=== PATIENT | female | born 1995 | race Caucasian/White ===

== ENCOUNTER 2017-11-19 22:46 | Emergency (ER) | payer SELFPAY ==
[2017-11-19 22:46] VITALS: BP 120/78; PULSE 89; RESP 16; TEMP 36.6; O2SAT 98; BMI 19.7
--- NOTE | 2017-11-19 22:55 | CT_ITS ---
STUDY: CT BRAIN WITHOUT CONTRAST REASON FOR EXAM: Female, 22 years old. Headache RADIATION DOSAGE (If Supplied By Facility): CTDIvol = ( 44.99 ) mGy, DLP = ( 745.49 ) mGycm TECHNIQUE: Transaxial CT imaging of the brain was performed without administration of intravenous contrast material. Individualized dose optimization techniques were used for this CT. COMPARISON: None. FINDINGS: There is no acute bleed or infarct. There are normal white matter tracts. The ventricles are normal in configuration. There is no hydrocephalus. The visualized paranasal sinuses are clear. The mastoid air cells are well aerated. There is no skull fracture. CT/Brain/Head without Contrast IMPRESSION: No acute intracranial abnormality. Electronically Signed: Jean Pierre Michaels, at 23:32 EDT Tel , Service support ,
[2017-11-19] MEDS: Metoclopramide 10 MG/2 ML Vial IV (23:02)
[2017-11-19] MEDS: DiphenhydrAMINE 50 MG/ML Syringe 25 MG IV (23:02)
[2017-11-19] MEDS: 0.9% Normal Saline 1,000 ML 999 ML IV (23:02)
--- NOTE | 2017-11-19 23:06 | ED.VISSUMM ---
- ER Visit Summary Date of Service: 11/19/17 Chief Complaint: Headache History of Present Illness: The patient is a 22 F nontraumatic frontal headache for the past 3 days. Waxes and wanes. Positive aura, nausea vomiting ?3 total. No hematemesis. Zvgf-sko-parumdi medication no relief. Denies previous similar symptoms. No head injuries. No neck pain. No fevers. Positive stress at home. Physical Examination: General: Alert and oriented ?3, no acute distress HEENT: Normocephalic, atraumatic. Moist mucosa membranes Neck: supple, nontender. No meningismus Cardiovascular: Regular rate and rhythm, no murmurs Respiratory: Normal breath sounds, symmetric, no distress Abdomen: Soft, nontender, nondistended Extremities: Nontender, no edema, pulses intact ?4 Neuro: no focal neurological deficits. Cranial nerves II through XII intact Test Results: CT head: No acute process Emergency Department Course and Treatment: Patient no focal neurological deficits. Migraine symptoms. No history of similar, CT head obtained for baseline which was negative. Treated with Reglan and Benadryl and IV fluids. Reevaluation symptoms improved. She has no PCP therefore is given on-call physician for follow-up. Treatment Plan: [] Disposition: Discharge Impression: Migraine headache This note was generated with [employer] dictation software. It may contain incorrect words, spelling, and punctuation that were not noted in review of the chart prior to signing ED Disposition - Plan for ED Patient: Disposition: Home or Assisted Living Chief Complaint: Headache Diagnosis: Migraine headache with aura Instructions: ED Headache Migraine Referrals: Care Physician,No Primary [Primary Care Provider] - Anabelle Sheehan MD [STAFF PHYSICIAN] - 5-7 Days
[2017-11-20 00:06] VITALS: BP 112/65; PULSE 105; RESP 18; O2SAT 100
== END 2017-11-20 00:08 | disposition home or self-care (01) ==
PROVIDERS: Emergency Provider Emergency Medicine
DX: G43.909 Migraine, unspecified, not intractable, without status migrainosus (principal); Z72.0 Tobacco use
CPT/HCPCS: 70450; 99283; J7030; A4216

== ENCOUNTER 2018-08-30 15:43 | Emergency (ER) | payer MEDICAID, SELFPAY ==
[2018-08-30 15:44] VITALS: BP 128/76; PULSE 109; RESP 16; TEMP 36.6; O2SAT 99; BMI 26.6
--- NOTE | 2018-08-30 16:18 | RAD_ITS ---
STUDY: X-RAY - RIGHT FOOT CLINICAL: Female, 23 years old. Right foot pain TECHNIQUE: 3 view(s) of the foot. COMPARISON: None. FINDINGS: Normal talus, calcaneus, and tarsal bones. Normal visualized subtalar, talonavicular, calcaneocuboid, tarsal and tarsometatarsal articulations. Normal metatarsi. Normal metatarsophalangeal joint of the great toe. Normal tibial and fibular sesamoid bones. Normal interphalangeal joint of the great toe. Normal phalanges of the great toe. Normal second through fifth metatarsophalangeal joints. Normal interphalangeal joints and phalanges of the lesser toes. The soft tissue structures are unremarkable. RAD/Foot min 3 Views IMPRESSION: Normal x-ray examination of the foot. Electronically Signed: Brandon Montgomery MD at 16:37 EDT , Service support ,
--- NOTE | 2018-08-30 16:36 | ED.VISSUMM ---
- ER Visit Summary Date of Service: 08/30/18 Chief Complaint: Right foot pain History of Present Illness: The patient is a 23 F who states for the past 2 weeks has had pain on the dorsum of her right foot. She states she has had intermittent swelling. She is been wearing high top tennis shoes. She denies any known trauma. No erythema. No known penetrating trauma. No history of gout. She states is painful when she bends her toes backwards particularly near the MTP joints of the second and third digits. No ankle pain. She occasionally has pain over the arch of her foot. Nothing was different today to make her come to the emergency department other than it has been 2 weeks of pain. Physical Examination: Afebrile vital signs stable Gen: Well-nourished well-developed Head: Normocephalic atraumatic Eyes: Perrl EOMI ENT: TMs clear no rhinorrhea moist mucous membranes Neck: Supple no lymphadenopathy no JVD nontender CVS: Regular rate rhythm no murmurs normal S1-S2 Respiratory: No distress clear to auscultation bilaterally chest nontender Abdomen: Soft nontender nondistended normal bowel sounds no masses Back: Nontender Extremity: Mild tenderness over the dorsum of the right foot. No erythema. No edema Skin: Normal color no rash Neuro: alert orientated ?3 CN II-XII intact normal strength sensation reflexes gait cerebellar Psych: Normal affect normal mood Test Results: Foot x-rays showed no bony abnormalities Emergency Department Course and Treatment: I think this probably a tendinitis. I will place her in an Jose wrap have her follow-up with podiatry. Scheduled anti-inflammatories. Impression: 1. Right foot tendinitis This note was generated with [employer] dictation software. It may contain incorrect words, spelling, and punctuation that were not noted in review of the chart prior to signing ED Disposition - Plan for ED Patient: Disposition: Home or Assisted Living Instructions: What Is Tendinitis of the Foot? Prescriptions: Ibuprofen [Motrin] 600 mg PO Q8H PRN PRN #21 tab PRN Reason: Pain Referrals: Brown Salmeron DPM [STAFF PHYSICIAN] -
== END 2018-08-30 16:50 | disposition home or self-care (01) ==
LOC: ED 16:45
PROVIDERS: Emergency Provider Emergency Medicine
DX: M65.871 Other synovitis and tenosynovitis, right ankle and foot (principal)
CPT/HCPCS: 73630; 99282

== ENCOUNTER 2018-12-04 13:31 | Emergency (ER) | payer MEDICAID, SELFPAY ==
[2018-12-04 13:31] VITALS: BP 146/83; PULSE 113; RESP 16; TEMP 36.4; O2SAT 98; BMI 28.0
--- NOTE | 2018-12-04 14:26 | ED.DCSUM_ITS ---
- ER Visit Summary Date of Service: 12/04/18 Chief Complaint: Toothache History of Present Illness: The patient is a 23 F with dental pain for several days. The pain is in her right maxillary molar. No other associated symptoms. Physical Examination: Right maxillary third molar has been extracted. The gumline is erythematous and mildly swollen. No fluctuance. No trismus. No tongue elevation. No lymphadenopathy. No other pertinent findings. Airway intact. No stridor or drooling. Test Results: None indicated Emergency Department Course and Treatment: Patient will be treated with antibiotics and pain medicine. Follow-up with dental. Treatment Plan: Disposition: Discharged Impression: 1. Toothache This note was generated with [employer] dictation software. It may contain incorrect words, spelling, and punctuation that were not noted in review of the chart prior to signing ED Disposition - Plan for ED Patient: Referrals: Care Physician,No Primary [Primary Care Provider] -
--- NOTE | 2018-12-04 14:28 | ED.DEP ---
ED Disposition - Plan for ED Patient: Instructions: Dental Pain Prescriptions: Naproxen [Naprosyn] 500 mg PO BID PRN #20 tab Prescription Printed Penicillin V Potassium 500 mg PO 4X/DAY #40 tab Prescription Printed Additional Instructions: follow up with your dentist
[2018-12-04] MEDS: Penicillin Vk 250 MG Tablet 500 MG PO (14:38)
== END 2018-12-04 14:39 | disposition home or self-care (01) ==
LOC: ED 13:57
PROVIDERS: Emergency Provider Emergency Medicine
DX: K08.89 Other specified disorders of teeth and supporting structures (principal); Z72.0 Tobacco use
CPT/HCPCS: 99283

== ENCOUNTER → 2019-03-01 15:40 | Outpatient (CLI) | payer MEDICAID, SELFPAY ==
[2019-03-01 14:58] VITALS: BMI 28.0
[2019-03-01 16:18] LABS: Absolute Lymphocyte Count 3.24 X10^3/uL (0.83-4.51); Basophil# 0.02 X10^3/uL; Basophil% 0.2 % (0-1); Eosinophil# 0.29 X10^3/uL; Eosinophils% 2.3 % (0-5); Hematocrit 37.3 % (37-47); Hemoglobin 12.6 g/dL (12.0-15.0); Lymphocyte # 3.24 X10^3/ul (4.0); Lymphocyte % 25.9 % (19-41); Mean Corp Hgb Conc 33.8 g/dL (32-36); Mean Corpuscular Hgb 31.1 pg (27.0-32.0); Mean Corpuscular Volume 92.1 fL (81-99); Mean Platelet Vol. 11.2 fl (6.2-12.0); Monocyte# 0.99 X10^3/uL; Monocyte% 7.9 % (0-10); NRBC Flagged by Analyzer 0 % (0-5); Neutrophil # 7.95 X10^3/uL (2.7-7.7); Neutrophil % 63.4 % (47-70); Platelet Count 298 K/mm3 (150-450); RBC Distribution Width CV 13.1 % (11.6-14.6); RBC Distribution Width SD 44.4 fl (35.1-43.9); Red Blood Count 4.05 M/mm3 (4.2-5.4); White Blood Count 12.5 K/mm3 (4.4-11.0)
[2019-03-01 16:44] LABS: ALB/GLOB Ratio 0.8 RATIO (0.9-2.4); AST(SGOT) 18 U/L (15-37); Alanine Aminotransfer ALT/SGPT 20 U/L (13-56); Albumin, Serum 3.6 g/dL (3.2-5.0); Alkaline Phosphatase 75 U/L (45-117); Anion Gap 9 (5-15); BUN 10 mg/dL (7-18); BUN/Creat Ratio 16.2 RATIO (10-20); Calcium,Total 9.3 mg/dL (8.5-10.1); Chloride 103 mmol/L (98-107); Creatinine, Serum 0.62 mg/dL (0.55-1.02); EST Glomerular Filtration Rate 126 mL/min (>60); Est Glom Filt Rate - Afr Amer 152 mL/min (>60); Globulin 4.3 g/dL (2.2-4.2); Glucose 84 mg/dL (74-106); Potassium 3.6 mmol/L (3.5-5.1); Protein, Total 7.9 g/dL (6.4-8.2); Sodium Level 135 mmol/L (136-145)
[2019-03-01 17:29] LABS: HIV - WCH Non-Reactive (Nonreactive); Rubella IgG 105.3 IU/mL
[2019-03-01 20:05] LABS: Chlamydia Trachomatis by PCR Negative (Negative); Neisserai gonorrhoeae by PCR Negative (Negative); Probe Check PASS; Sample Adequacy Control PASS; Specimen Processing Control PASS
[2019-03-01 20:06] LABS: Chlamydia Trachomatis by PCR Negative (Negative); Neisserai gonorrhoeae by PCR Negative (Negative); Probe Check PASS; Sample Adequacy Control PASS; Specimen Processing Control PASS
[2019-03-03 20:07] LABS: HCV Quant. RNA PCR HCV Not Detected IU/mL (.)
[2019-03-04 12:38] LABS: HPV Reflexed? NOT INDICATED
[2019-03-04 12:38] LABS: V-Zoster IgG (Immunity) 348 index (Immune >165)
[2019-03-05 01:54] LABS: Rapid Plasmin Reagin (RPR) NONREACTIVE (NONREACTIVE)
== END ==
PROVIDERS: Nurse Practitioner Women's Health; Referring Provider Obstetrics & Gynecology; Visit Provider Obstetrics & Gynecology
DX: O09.90 Supervision of high risk pregnancy, unspecified, unspecified trimester (principal); Z12.4 Encounter for screening for malignant neoplasm of cervix; Z86.19 Personal history of other infectious and parasitic diseases
CPT/HCPCS: 36415; 80053; 85025; 86592; 86703; 86762; 86787; 86850; 86900; 86901; 87086; 87088; 87491; 87522; 87591; 88175; G0145

== ENCOUNTER → 2019-03-29 13:57 | Outpatient (CLI) | payer MEDICAID, SELFPAY ==
[2019-03-29 13:47] VITALS: BMI 28.0
[2019-03-29 15:02] LABS: Amphetamine Urine VISTA NEGATIVE (<1000 ng/mL); Barbiturate Urine VISTA NEGATIVE (< 200 ng/mL); Benzodiazepine Urine VISTA NEGATIVE (< 200 ng/mL); Cocaine Urine VISTA NEGATIVE (< 300 ng/mL); Ecstacy Urine VISTA NEGATIVE (< 500 ng/mL); Methadone Urine VISTA NEGATIVE (< 300 ng/mL); PCP Urine VISTA NEGATIVE (< 25 ng/mL); THC Urine VISTA NEGATIVE (< 50 ng/mL); Vista UDS pH Range 6
[2019-03-29 15:32] LABS: Hepatitis B Surface Antigen Non-Reactive (Nonreactive)
== END ==
PROVIDERS: Referring Provider Obstetrics & Gynecology; Visit Provider Obstetrics & Gynecology
DX: F19.11 Other psychoactive substance abuse, in remission (principal)
CPT/HCPCS: 36415; 80307; 87340

== ENCOUNTER → 2019-06-25 09:43 | Outpatient (CLI) | payer MEDICAID, SELFPAY ==
[2019-06-25 09:01] VITALS: BMI 28.0
[2019-06-25 10:16] LABS: Glucose Challenge Gest 1H 50g 109 mg/dL (70-140)
[2019-06-25 10:29] LABS: Absolute Lymphocyte Count 2.81 X10^3/uL (0.83-4.51); Absolute Neutrophil Count 10.6 X10^3/uL (2.0-7.7); Basophil# 0.02 X10^3/uL; Basophil% 0.1 % (0-1); Eosinophil# 0.31 X10^3/uL; Eosinophils% 2.1 % (0-5); Hematocrit 32.2 % (37-47); Hemoglobin 10.9 g/dL (12.0-15.0); Lymphocyte # 2.81 X10^3/ul (4.0); Lymphocyte % 18.9 % (19-41); Mean Corp Hgb Conc 33.9 g/dL (32-36); Mean Corpuscular Hgb 32.5 pg (27.0-32.0); Mean Corpuscular Volume 96.1 fL (81-99); Mean Platelet Vol. 10.8 fl (6.2-12.0); Monocyte# 1.07 X10^3/uL; Monocyte% 7.2 % (0-10); NRBC Flagged by Analyzer 0 % (0-5); Neutrophil # 10.57 X10^3/uL (2.7-7.7); Neutrophil % 71.1 % (47-70); Platelet Count 289 K/mm3 (150-450); RBC Distribution Width CV 13.3 % (11.6-14.6); RBC Distribution Width SD 46.9 fl (35.1-43.9); Red Blood Count 3.35 M/mm3 (4.2-5.4); White Blood Count 14.9 K/mm3 (4.4-11.0)
== END ==
PROVIDERS: Referring Provider Obstetrics & Gynecology; Visit Provider Obstetrics & Gynecology
DX: O09.90 Supervision of high risk pregnancy, unspecified, unspecified trimester (principal); Z3A.26 26 weeks gestation of pregnancy
CPT/HCPCS: 36415; 82950; 85025

== ENCOUNTER → 2019-09-03 09:37 | Outpatient (CLI) | payer MEDICAID, SELFPAY ==
[2019-09-03 09:25] VITALS: BMI 28.0
[2019-09-03 09:51] LABS: Absolute Lymphocyte Count 2.83 X10^3/uL (0.83-4.51); Absolute Neutrophil Count 11.3 X10^3/uL (2.0-7.7); Basophil# 0.03 X10^3/uL; Basophil% 0.2 % (0-1); Eosinophil# 0.41 X10^3/uL; Eosinophils% 2.6 % (0-5); Hematocrit 35.4 % (37-47); Hemoglobin 11.7 g/dL (12.0-15.0); Lymphocyte # 2.83 X10^3/ul (4.0); Lymphocyte % 17.9 % (19-41); Mean Corp Hgb Conc 33.1 g/dL (32-36); Mean Corpuscular Hgb 31.3 pg (27.0-32.0); Mean Corpuscular Volume 94.7 fL (81-99); Mean Platelet Vol. 10.6 fl (6.2-12.0); Monocyte# 1.25 X10^3/uL; Monocyte% 7.9 % (0-10); NRBC Flagged by Analyzer 0 % (0-5); Neutrophil # 11.25 X10^3/uL (2.7-7.7); Neutrophil % 70.9 % (47-70); Platelet Count 308 K/mm3 (150-450); RBC Distribution Width CV 13.2 % (11.6-14.6); RBC Distribution Width SD 46.1 fl (35.1-43.9); Red Blood Count 3.74 M/mm3 (4.2-5.4); White Blood Count 15.9 K/mm3 (4.4-11.0)
[2019-09-03 10:09] LABS: ALB/GLOB Ratio 0.7 RATIO (0.9-2.4); AST(SGOT) 17 U/L (15-37); Alanine Aminotransfer ALT/SGPT 18 U/L (13-56); Albumin, Serum 2.7 g/dL (3.2-5.0); Alkaline Phosphatase 136 U/L (45-117); Anion Gap 9 (5-15); BUN 5 mg/dL (7-18); BUN/Creat Ratio 7.9 RATIO (10-20); Calcium,Total 8.6 mg/dL (8.5-10.1); Chloride 107 mmol/L (98-107); Creatinine, Serum 0.63 mg/dL (0.55-1.02); EST Glomerular Filtration Rate 121 mL/min (>60); Est Glom Filt Rate - Afr Amer 147 mL/min (>60); Globulin 4.1 g/dL (2.2-4.2); Glucose 101 mg/dL (74-106); Potassium 3.8 mmol/L (3.5-5.1); Protein, Total 6.8 g/dL (6.4-8.2); Sodium Level 137 mmol/L (136-145)
[2019-09-03 13:26] LABS: Amphetamine Urine VISTA NEGATIVE (<1000 ng/mL); Barbiturate Urine VISTA NEGATIVE (< 200 ng/mL); Benzodiazepine Urine VISTA NEGATIVE (< 200 ng/mL); Cocaine Urine VISTA NEGATIVE (< 300 ng/mL); Ecstacy Urine VISTA NEGATIVE (< 500 ng/mL); Methadone Urine VISTA NEGATIVE (< 300 ng/mL); PCP Urine VISTA NEGATIVE (< 25 ng/mL); THC Urine VISTA NEGATIVE (< 50 ng/mL); Vista UDS pH Range 6
[2019-09-04 20:07] LABS: HCV Quant. RNA PCR HCV Not Detected IU/mL (.)
== END ==
PROVIDERS: Nurse Practitioner Women's Health; Referring Provider Obstetrics & Gynecology; Visit Provider Obstetrics & Gynecology
DX: O09.90 Supervision of high risk pregnancy, unspecified, unspecified trimester (principal); Z86.19 Personal history of other infectious and parasitic diseases; Z3A.00 Weeks of gestation of pregnancy not specified
CPT/HCPCS: 36415; 80053; 80307; 85025; 87081; 87522

== ENCOUNTER 2019-09-26 15:15 | Inpatient (IN) | payer MEDICAID, SELFPAY ==
[2019-09-24 13:15] VITALS: BMI 28.0
[2019-09-26] VITALS (58 sets, daily range): BP systolic 106–146; BP diastolic 57–86; PULSE 86–111; TEMP 36.2–37.3; O2SAT 82–99; BMI 34.7
[2019-09-26 16:18] LABS: ROM Internal Control Test YES-OK TO RESULT pt. (Internal QC); ROM Patient Test Negative (Negative)
[2019-09-26] MEDS: 0.9% Saline Lock 10 ML Syringe IV ×2 (16:27→23:00)
[2019-09-26] MEDS: Lactated Ringers 1,000 ML 50 ML IV (16:59)
[2019-09-26] MEDS: Lactated Ringers 500 ML 999 ML IV ×3 (16:59→18:34)
--- NOTE | 2019-09-26 17:14 | HP.PCM_ITS ---
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 Cinthia Bridges MD) Smoking Status: Current every day smoker alcohol intake: never substance use type: does not use caffeine: Yes what type of physical activity do you participate in: walking frequency: 3-4 times per week seatbelt use: always do you feel safe at home: Yes additional social history: Boyfriend-Rigo Pregancy History 2 Elective abortions Hx Para 1 Spontaneous abortions Hx # Term Pregnancies Ectopic pregnancies Hx # Pregnancies Multiple births # of living children Past Pregnancies Del. Date Name GA/Weeks Outcome Route Bth Weight Gen Labor Lgth Anesthesia Del Locatn Provider FOB 09/10/11 Vincent 39 live - full term 7lbs 1oz Male 1 3 hours epidural [facility] Dr. Cyrus Santana Delivery Date: 09/10/11 On 03/01/19 @ 14:38 Genesis Covarrubias No issues during or delivery. HPI est ob 40w: Details: RONIT MARTINEZ is a 24 year old @ 39w6d presents IAL 5 cm dilated co regular ctx. she denies any vb had questionable lof but didn't appear ruptured. She was 5 cm upon admission. OB Visit ERWIN Calculator Estimated Delivery Date Method Current WG Current Estimate 09/27/19 Ultrasound #1 39w 4d Other Estimates 09/20/19 LMP (Certain) 40w 4d Expected Delivery Route/Plan Labor Preferences- labor support person: abrahan ceferino- amy pain management options preferred: epidural cut cord/dad catch: no : no PP control planned: depo provera discussed possible routes of delivery and associated risks: [] special requests: [] Specific Issue/Plans flu vaccine: given tdap vaccine: given rhogam: na LARC form signed: declined movement and labor precautions reviewed. Problem list reviewed and updated with the most current plan of care details and appropriate orders placed. Relevant counseling for the gestational age provided. Continue routine care and follow up unless otherwise noted in visit notes/problem list details Initial Weight: Not Recorded Date EGA Weight BP Urine Prot Glucose FHR FuHt Pres Dilation Effaced St Visit Note 03/01/19 10w 0d 167 lb 6 oz 108/58 171 03/29/19 14w 0d 170 lb 2 oz 130/70 Negative Negative 160 145 no vb cramping increased energy now 04/30/19 18w 4d 173 lb 118/74 Negative Negative 140 no vb lof cramping 05/28/19 22w 4d 180 lb 8 oz 135/84 Negative Negative 147 Good FM. No Vb, LOF 06/25/19 26w 4d 185 lb 122/78 Negative Negative 145 SM- no vb lof good fm no reg ctx cbc gct tdap 07/23/19 30w 4d 195 lb 116/70 Negative Negative 145 31 SM- no vb lof good fm no regular ctx 08/06/19 32w 4d 196 lb 8 oz 118/62 Negative Negative 140 33 SM- no vb lof good fm no regular ctx 08/20/19 34w 4d 195 lb 98/60 Negative Negative 245 35 Cephalic SM- no vb lof fm no regular ctx 09/03/19 36w 4d 199 lb 6 oz 120/82 Negative Negative 138 36 Cephalic 1 MH-No Vb, LOF. Good FM. Hep C RNA, CMP, CBC, tox screen, GBS. 09/09/19 37w 3d 200 lb 112/60 Negative Negative 146 37 Cephalic 1 MH-Good FM. No VB, LOF. GBS negative 09/17/19 38w 4d 204 lb 108/72 Negative Negative 145 38 Cephalic 3 sm- NO VB LOF GOOD FM NO REGULAR CTX 09/24/19 39w 4d 206 lb 136/82 Negative Negative 140 39 Cephalic SM- no vb lof good fm no regular ctx SM- no vb lof good fm no regular ctx. membranes swept Notes Visit Date: 09/24/19 ??No visit notes to display Visit Date: 09/17/19 ??No visit notes to display Visit Date: 09/09/19 ??No visit notes to display Visit Date: 09/03/19 ??No visit notes to display Visit Date: 08/20/19 ??No visit notes to display Visit Date: 08/06/19 ??No visit notes to display Visit Date: 07/23/19 ??No visit notes to display Visit Date: 06/25/19 ??No visit notes to display Visit Date: 05/28/19 ??No visit notes to display Visit Date: 04/30/19 ??no vb lof cramping ??Cinthia Bridges MD on 04/30/19 Visit Date: 03/29/19 ??no vb cramping increased energy now ??Cinthia Bridges MD on 03/29/19 Visit Date: 03/01/19 ??No visit notes to display ACOG First Trimester First Trimester: Desire for , Anticipated Course of Care, Toxoplasmosis Precations, Use of Any medications, Sexual activity, Exercise, Sauna/Hot tub use, Seat Belt use, Indications for US and Screening for Aneuploidy; discussed Alcohol, discussed Tobacco Cessation, discussed Illicit/Re creational Drug/Substance Use, discussed Intimate Partner Violence, discussed Unstable Housing, discussed Environmental/Work Hazards or discussed Diagnostics Diagnostics Diagnostics Blood Type A POSITIVE 03/01/19 Antibody Screen NEGATIVE 03/01/19 Glucose 1 Hr 50 gm 109 mg/dL (70-140) 06/25/19 HIV 1&2 Antibody Non-Reactive (Nonreactive) 03/01/19 Rubella IgG Antibody 105.3 IU/mL 03/01/19 VZV IgG Antibody 348 index (Immune >165) 03/01/19 Hgb 11.7 g/dL (12.0-15.0) L 09/03/19 Hct 35.4 % (37-47) L 09/03/19 RPR NONREACTIVE (NONREACTIVE) 03/01/19 Details: HIV: Urine Culture: Sequential Screen: NIPT Screen: ROS Const Denies fever(s) Card Reports system reviewed and no additional complaints, except as docu Resp Reports system reviewed and no additional complaints, except as docu GI Reports as per HPI, Denies abdominal pain Reports as per HPI, Denies abnormal vaginal bleeding, Denies vaginal discharge Musc Reports system reviewed and no additional complaints, except as docu Exam Const General: healthy appearing, comfortable, no acute distress [facility] Head: normal to inspection Nose: external nose normal Face and sinus: normal facial exam Neck Neck: normal visual inspection, full ROM, no lymphadenopathy Thyroid: thyroid normal Chest Chest palpation & inspection: normal inspection of the chest Resp Effort & Inspection: normal respiratory effort GI Inspection: normal to inspection Palpation: soft, nontender Other: vertex and appropriate size for gestational age Other: Cervical Exam: Extrem General: pedal edema Results POC Urinalysis 2 Dip (Clinic) Office Urine Glucose Negative Last Edit by Nadine Hawkins on 09/24/19 13:1 8 Office Urine Protein Negative Last Edit by Nadine Hawkins on 09/24/19 13:1 8 Assessment & Plan Problems 1. History of hepatitis C Z86.19 2. 39 weeks gestation of Z3A.39 3. Tobacco use affecting , antepartum O99.330 4. 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 Supervision of high risk , antepartum O09.90 admit IAL 5 cm had 3 min prolonged decel into the 70s. arom clear fluid and IUPC placed. 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
[2019-09-26] MEDS: fentaNYL-bupivacaine (epidural) 100 ML BAG EPIDURAL (18:28)
[2019-09-26 18:46] LABS: Absolute Neutrophil Count 14.7 X10^3/uL (2.0-7.7); Basophil# 0.03 X10^3/uL; Basophil% 0.2 % (0-1); Eosinophil# 0.18 X10^3/uL; Hemoglobin 11.8 g/dL (12.0-15.0); Lymphocyte % 10.4 % (19-41); Mean Corp Hgb Conc 32.8 g/dL (32-36); Mean Corpuscular Hgb 32.1 pg (27.0-32.0); Mean Corpuscular Volume 97.8 fL (81-99); Mean Platelet Vol. 11.3 fl (6.2-12.0); Monocyte# 1.36 X10^3/uL; Monocyte% 7.5 % (0-10); NRBC Flagged by Analyzer 0 % (0-5); Neutrophil # 14.67 X10^3/uL (2.7-7.7); Neutrophil % 80.5 % (47-70); Platelet Count 272 K/mm3 (150-450); RBC Distribution Width CV 13.9 % (11.6-14.6); RBC Distribution Width SD 49.4 fl (35.1-43.9); Red Blood Count 3.68 M/mm3 (4.2-5.4); White Blood Count 18.2 K/mm3 (4.4-11.0)
[2019-09-26 19:38] LABS: Amphetamine Urine VISTA NEGATIVE (<1000 ng/mL); Barbiturate Urine VISTA NEGATIVE (< 200 ng/mL); Benzodiazepine Urine VISTA NEGATIVE (< 200 ng/mL); Cocaine Urine VISTA NEGATIVE (< 300 ng/mL); Ecstacy Urine VISTA NEGATIVE (< 500 ng/mL); Methadone Urine VISTA NEGATIVE (< 300 ng/mL); PCP Urine VISTA NEGATIVE (< 25 ng/mL); THC Urine VISTA NEGATIVE (< 50 ng/mL); Vista UDS pH Range 6
[2019-09-26] MEDS: Oxytocin 30 units/NS 500 ml 30 UNITS/500 ML IV.SOLN 334 UNITS IV (20:08)
--- NOTE | 2019-09-26 20:17 | PCM.OPRPT ---
Problem List (1) Active labor Status: Acute Vaginal Delivery Maternal Presentation: Active Labor 24-year-old G2, P1 at 39 weeks 6 days presents in active labor 5 cm dilated Amniotic Membrane Rupture Type: Artificial Amniotic Fluid Description: Clear Final ERWIN: 09/27/19 Gestational age: 39 Weeks and 6 Days Date of Procedure: 09/26/19 Pre-Operative Diagnosis: In active labor prolonged heart rate deceleration Post-Operative Diagnosis: Same Surgery/ Procedure Performed: Vacuum Assisted Vaginal Delivery Type of Anesthesia: Epidural Description of Procedure: Patient went to complete and had a prolonged heart rate deceleration down into the 50s to 60s x5 to 6 minutes therefore patient was checked and she was noted to be complete and a vacuum was applied at +2 station with infant in ELIZABETH presentation. Kiwi vacuum was applied and with 1 pull no pop offs and 1 contraction with a total duration of less than 20 seconds the head was delivered using the vacuum. Suction removed and anterior and posterior shoulders delivered without complication immediately following and the rest of the infant delivered. Delayed cord clamping was employed and then the cord was clamped and cut. ABGs and VBG's were sent. Placenta delivered spontaneously immediately following was noted to be intact and have a three-vessel cord. EBL was 300 cc. No lacerations were noted. Presentation: ELIZABETH Placental Delivery Description: Spontaneous Placenta Disposition: [facility] Cord Vessel Description: 3 Vessels Cord Entanglement: None Estimated Blood Loss: 300 A gender: Male Episiotomy Description: None Laceration: None Medications given after delivery: IV Pitocin Complications: None Multi Select Codes - Urinary/Genital Urinary/Genital CPT Codes: 21706 Vaginal Delivery+ Care([facility]) - vacuum
[2019-09-27] VITALS (12 sets, daily range): BP systolic 107–119; BP diastolic 55–64; PULSE 75–93; RESP 16–18; TEMP 36.4–37.3; O2SAT 98
[2019-09-27] MEDS: Naproxen 250 MG Tablet 500 MG PO (03:05)
--- NOTE | 2019-09-27 07:42 | PN.OBGYN_ITS ---
Patient Problems: Active and Suspected Problems (Last Reviewed 09/24/19 @ 13:15 by Nadine Hawkins) Active labor (Acute) Subjective: doing well no complaints pain controlled no CP SOB N V ambulating well tolerating po lochia moderate, going well - Physical Exam Vitals/I&O's: Vital Signs Temp Pulse Resp BP Pulse Ox 97.6 F L 81 18 119/57 L 97 09/27/19 04:27 09/27/19 04:27 09/27/19 04:27 09/27/19 04:27 09/26/19 19:48 Weight: 201 lb 15.095 oz Body Mass Index (BMI) 34.7 Intake and Output for Last 24 Hours 09/25/19 09/26/19 09/27/19 23:59 23:59 23:59 Intake Total 2300.33 / 2300.33 Output Total 300 / 300 600 / 600 Balance 2000.33 / 2000.33 -600 / -600 General: Alert, Oriented x3 Laboratory Results 09/26/19 15:30: Vag Amniotic Fld Detect Negative 09/26/19 16:27: WBC Cancelled, Corrected WBC Cancelled, RBC Cancelled, Hgb Cancelled, Hct Cancelled, MCV Cancelled, MCH Cancelled, MCHC Cancelled, RDW Std Deviation Cancelled, RDW Coeff of Kelsie Cancelled, Plt Count Cancelled, MPV Cancelled, Diff Path Review Cancelled 09/26/19 16:27: Blood Type A POSITIVE, Antibody Screen NEGATIVE 09/26/19 16:27: WBC 18.2 H, RBC 3.68 L, Hgb 11.8 L, Hct 36.0 L, MCV 97.8, MCH 32.1 H, MCHC 32.8, RDW Std Deviation 49.4 H, RDW Coeff of Kelsie 13.9, Plt Count 272, MPV 11.3, Immature Gran % (Auto) 0.400, Neut % (Auto) 80.5 H, Lymph % (Auto) 10.4 L, Griggs % (Auto) 7.5, Eos % (Auto) 1.0, Baso % (Auto) 0.2, Absolute Neuts (auto) 14.7 H, Absolute Lymphs (auto) 1.90, Nucleated RBC % 0 09/26/19 18:58: Urine Opiates Screen NEGATIVE, Urine Methadone Screen NEGATIVE, Ur Barbiturates Screen NEGATIVE, Ur Phencyclidine Scrn NEGATIVE, Ur Amphetamines Screen NEGATIVE, U Methamphetamin-MDMA NEGATIVE, U Benzodiazepines Scrn NEGATIVE, Urine Cocaine Screen NEGATIVE, U Cannabinoids Screen NEGATIVE, Ur Drug Screen Comment Current Medications Acetaminophen (Tylenol) 1,000 mg PO Q8H PRN PRN PRN Reason: Pain Score 1-3/10 Bisacodyl (Dulcolax) 10 mg RECTAL UD PRN PRN Reason: If no BM Dibucaine (Dibucaine) 1 applic TOPICAL TID PRN PRN; Protocol PRN Reason: Discomfort Hydrocortisone (Hytone) 1 applic TOPICAL TID PRN PRN; Protocol PRN Reason: Discomfort Methylergonovine Maleate (Methergine) 0.2 mg IM X1 PRN PRN Reason: Excess bleeding/uterine atony Naproxen (Naprosyn) 500 mg PO Q8H PRN PRN PRN Reason: Pain Score 1-3/10 Last Admin: 09/27/19 03:05 Dose: 500 mg Documented by: Ondansetron HCl (Zofran) 4 mg IV Q4H PRN PRN PRN Reason: Nausea Oxycodone HCl (Oxyir) 5 - 10 mg PO Q4H PRN PRN PRN Reason: Pain Score 4-10/10 Multivit/Folic Acid/Iron (Prenatabs Fa) 1 tablet PO DAILY SOTO Senna/Docusate Sodium (Senokot-S, Ciera-Colace) 1 - 2 tablet PO DAILY PRN PRN PRN Reason: Constipation Simethicone (Mylicon) 80 mg PO PCHS PRN PRN Reason: Indigestion/Stomach pain Sodium Chloride () 5 - 15 ml IV UD PRN PRN Reason: SALINE FLUSH Last Admin: 09/26/19 23:00 Dose: 10 ml Documented by: Medical Necessity - Tobacco Use Smoking Status: Current every day smoker Assessment/Plan All Active Problems (Last Reviewed 09/24/19 @ 13:15 by Nadine Hawkins) Active labor (Acute) History of hepatitis C (Acute) (Acute) Tobacco use affecting , antepartum (Acute) History of drug abuse in remission (Acute) Supervision of high risk , antepartum (Acute) s/p PPD # 1 1. routine post delivery care 2. breast feeding- support given 3. rh positive 4. rubella immune
[2019-09-27] MEDS: Prenatal Vits Tablet 1 TABLET PO (10:12)
--- NOTE | 2019-09-27 10:56 | DCINST_ITS ---
Discharge Diet: No Restrictions Discharge Activity: Return to Normal Activity, May not drive while taking narcotic pain medications., May Shower May resume sexual activity in: 4-6 weeks Call your doctor if your incision/area has: Continuous Slow Oozing, Sudden Increased Bleeding, Increased Pain/ Swelling, Increased Redness, Foul Smelling Discharge Additional Instructions: If you experience any of the following, contact your healthcare provider. * Bleeding that soaks a pad every hour for 2 hours * Fever 100.4 or higher * Unrelieved incision or abdominal pain * Swelling, redness, discharge or bleeding from your incision or episiotomy site * Your incision begins to separate * Problems urinating (including inability to urinate or burning while urinating). * Visual changes * Severe headache * Flu-like symptoms * Pain or redness in one of both of your breasts * Pain, warmth, tenderness or swelling in your legs, especially the calf area * Frequent nausea and vomiting * Symptoms of depression or anxiety If you experience any of the following, call 911 or go to the nearest Emergency Room. * Chest pain * Problems breathing * Seizure activity * Partial or complete paralysis of a body part, slurred speech, weakness or drooping of the face, or a sudden inability to walk or hold your balance Allergies/Adverse Reactions: Allergies No Known Allergies Allergy (Verified 09/26/19 15:58) Medications to take at Discharge Vit No.130/Iron/Folic [ Tablet] 1 tab PO DAILY 09/26/19 Please Follow Up With: Cinthia Bridges MD - [phone] When: Call to make an appointment with your doctor in 6 weeks. If you had elevated Blood pressure or 4th degree laceration you will need to be seen in 2 weeks. Primary Care Physician: Care Physician,No Primary [Primary Care Provider] - Test Results: Test results from this visit will be discussed in further detail at your follow- up appointment, if applicable.
--- NOTE | 2019-09-27 10:56 | PCM.DCVAG ---
Discharge Diet: No Restrictions Discharge Activity: Return to Normal Activity, May not drive while taking narcotic pain medications., May Shower May resume sexual activity in: 4-6 weeks Call your doctor if your incision/area has: Continuous Slow Oozing, Sudden Increased Bleeding, Increased Pain/ Swelling, Increased Redness, Foul Smelling Discharge Additional Instructions: If you experience any of the following, contact your healthcare provider. Bleeding that soaks a pad every hour for 2 hours Fever 100.4 or higher Unrelieved incision or abdominal pain Swelling, redness, discharge or bleeding from your incision or episiotomy site Your incision begins to separate Problems urinating (including inability to urinate or burning while urinating). Visual changes Severe headache Flu-like symptoms Pain or redness in one of both of your breasts Pain, warmth, tenderness or swelling in your legs, especially the calf area Frequent nausea and vomiting Symptoms of depression or anxiety If you experience any of the following, call 911 or go to the nearest Emergency Room. Chest pain Problems breathing Seizure activity Partial or complete paralysis of a body part, slurred speech, weakness or drooping of the face, or a sudden inability to walk or hold your balance Allergies/Adverse Reactions: Allergies No Known Allergies Allergy (Verified 09/26/19 15:58) Medications to take at Discharge Vit No.130/Iron/Folic [ Tablet] 1 tab PO DAILY 09/26/19 Please Follow Up With: Cinthia Bridges MD - [phone] When: Call to make an appointment with your doctor in 6 weeks. If you had elevated Blood pressure or 4th degree laceration you will need to be seen in 2 weeks. Primary Care Physician: Care Physician,No Primary [Primary Care Provider] - Test Results: Test results from this visit will be discussed in further detail at your follow-up appointment, if applicable.
--- NOTE | 2019-09-27 14:13 | CASEMGMT ---
Social Work Assessment Labor and Delivery Unit Patient Address:[address] [place] [id number] Phone number: [phone] Date of Referral: 09.27.2019 Time of Referral: 829 Referred By: nursing notification Date of Intervention: 09.27.2019 Time of Intervention: 1329 Reason for Referral: maternal history of substance use; negative tox screens in . History obtained from: medical records and mother of baby (MOB) Hilda Horne. *MOB is known to this rewriter from prior deliveries at [facility]* Household composition: MOB reports to live with father of baby (FOB) Fermín Cruz. MOB denies any safety concerns or history of abuse/control/intimidation in this relationship or home environment. Patient's parent/guardian status: MOB and FOB have been together for a year, and is the first child for MOB and FOB together. Minor children for MOB include: Vincent Rodriguez, born 09.10.2011, father is Jean Pierre Rodriguez who about 2 years ago related to infection stemming for substance use issues. Nilo Cruz, born 09.26.2019, father is the identified FOB above. OKSANA had 2 daughters: Jana, same age as Vincent, lives out of state and FOB does not see her. Bette, around the age of 3 or 4, in a car accident. Medical History: MOB is G2, P1 to 2 after delivering Nilo. care started at 10 weeks and regular thereafter. Baby Nilo delivered weighing 8 pounds, Apgars 9 and 9 at 1 and 5 minutes of life. Chart indicates BRITT with history of Hepatitis C. Educational Status: MOB completed through the 10th grade, got into [id number] grade and was doing online schooling when Vincent was born. MOB reports she just never finished. MOB reports to be able to read, write, and to understand what reads. 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 FOB works making deliveries for [employer] and then at [employer]. Supplies: MOB reports to have needed supplies including a car seat, safe sleep space, bottles, formula, clothing, diapers, and wipes. Childcare/Caregiver(s): MOB and FOB. Transportation: No issues. Programs/Agencies Involved: MOB is active with S for food and medical. Active with WIC. Declines referrals to [facility], but had history of this for Vincent. Also declines referral to [facility]. No current mental health or substance use history. Children Services/Legal Issues: BRITT reports history of drug related charges, served some fdc time for this and is still on probation but due to get off of probation soon. MOB reports to be in no day to get off of probation. MOB denies any history of children service involvement with Vincent. Behavioral Health Issues: Mental Health History: MOB denies history of depression, anxiety, suicidal ideation/intent/planning/attempts. Denies any history of depression and anxiety. Admits sometimes feel a little anxious but not to the point of causing distress. Substance Use History: Positive tobacco smoking. History of marijuana use as a teen. MOB reports after delivery of Vincent was given a prescription of Percocet. MOB repots after this prescription, and along with influence of Vincent's father became hooked on drugs, first heroin and then meth. BRITT reports has been clean for a year and a half. MOB reports went through 3 months of residential at [facility] and did aftercare. Family History: BRITT reports her brother went to [facility] for issues with messing with minors. BRITT reports OKSANA has PTSD related dot his daughter dying, and that the symptoms are under control. Drug Screens: Maternal drug screens negative on 04.08.2019, 09.03.2019, and at admission on 09.26.2019. Baby's urine is negative and meconium is pending. Family/Social Stressors: BRITT with history of substances use disorder, reporting to be in recovery since March 2018. BRITT reports Vincent's father prior to MOB getting into trouble and going into rehab. Also in the last 2 years BRITT's brother went to [facility]. No other identified or current stressors reported. Support Systems: BRITT reports her parents have been a primary support to BRITT through the years, helping to take care of Vincent when BRITT was away and continuing to be supportive when BRITT was discharged from residential. MOB reports her father is the main person MOB can talk of emotional support issues. MOB reports Fermín is also supportive. Depression/Shaken Baby/Safe Sleeping : Information given on safe sleeping and shaken baby prevention. Educated MOB to depression and anxiety, reviewed some risk factors and reinforced that it is okay for MOB to seek out help and support should symptoms arise. MOB reports to know that can talk to family and could even call OBGYN. MOB reports to have a friend who recently in the lat couple of months due to getting depressed, relapsing on drugs, and then dying. MOB reports to know that is real. ASSESSMENT: Met with MOB in room, introducing to self and role. MOB holding baby, gentle and attentive to baby during social work visit. MOB reports to have good feelings about the baby and described thoughts about the baby as amazing. MOB held good eye contact, was nondefensive, and appearing forthcoming with this rewriter as evidenced by MOB initiating topics of past substance use and stressors over the last couple of years. MOB reports to feel her recovery is going well, denies any cravings nor any using thoughts or dreams during this . MOB reports she would be willing to go back into counseling if depression hits. MOB reports too have adequate support at home going, to have all needed supplies to care for baby. MOB pleasant, did become teary eyed when talking about her support system and being grateful that her parents have stood by patient. MOB accepting of community resource information provided this date. Denies any other needs for home going. No concerns voiced by staff regarding mother/child bonding or interactions. Safe Plan of Care for infant related to substance use: Continued abstinence of substances. PLAN: MOB and baby to home at discharge. [facility] resource list provided, handouts on shaken baby prevention, safe sleeping, and depression packet that includes resources. No other services requested or indicated. -KEYA Melgoza, DATABASE ADMINISTRATION ASSOCIATE
== END 2019-09-27 21:20 | disposition home or self-care (01) | DRG 560 ==
PROVIDERS: Admitting Provider Obstetrics & Gynecology; Visit Provider Obstetrics & Gynecology
DX: O76 Abnormality in fetal heart rate and rhythm complicating labor and delivery (principal); O99.334 Smoking (tobacco) complicating childbirth; F17.200 Nicotine dependence, unspecified, uncomplicated; F19.11 Other psychoactive substance abuse, in remission; Z37.0 Single live birth; Z3A.39 39 weeks gestation of pregnancy; Z86.19 Personal history of other infectious and parasitic diseases
CPT/HCPCS: 59025; 59050; 80307; 84112; 85025; 86850; 86900; 86901; 99218; J7120; A4216; G0378

== ENCOUNTER → 2022-01-14 | Outpatient (CLI) | payer MEDICAID, SELFPAY ==
[2022-01-14 17:04] LABS: Absolute Lymphocyte Count 3.61 X10^3/uL (0.83-4.51); Absolute Neutrophil Count 5.2 X10^3/uL (2.0-7.7); Basophil# 0.02 X10^3/uL; Basophil% 0.2 % (0-1); Eosinophil# 0.23 X10^3/uL; Eosinophils% 2.3 % (0-5); Hematocrit 40.9 % (37-47); Hemoglobin 13.9 g/dL (12.0-15.0); Lymphocyte # 3.61 X10^3/ul (0.83-4.51); Lymphocyte % 36.5 % (19-41); Mean Corpuscular Hgb 32.4 pg (27.0-32.0); Mean Corpuscular Volume 95.3 fL (81-99); Mean Platelet Vol. 10.9 fl (6.2-12.0); Monocyte# 0.86 X10^3/uL; Monocyte% 8.7 % (0-10); NRBC Flagged by Analyzer 0 % (0-5); Neutrophil # 5.16 X10^3/uL (2.7-7.7); Neutrophil % 52.1 % (47-70); Platelet Count 289 K/mm3 (150-450); RBC Distribution Width CV 12.4 % (11.6-14.6); RBC Distribution Width SD 43.1 fl (35.1-43.9); Red Blood Count 4.29 M/mm3 (4.2-5.4); White Blood Count 9.9 K/mm3 (4.4-11.0)
[2022-01-14 17:33] LABS: ALB/GLOB Ratio 1.1 RATIO (0.9-2.4); AST(SGOT) 15 U/L (15-37); Alanine Aminotransfer ALT/SGPT 21 U/L (13-56); Albumin, Serum 4.1 g/dL (3.2-5.0); Alkaline Phosphatase 45 U/L (45-117); Anion Gap 4 (5-15); BUN 7 mg/dL (7-18); BUN/Creat Ratio 8.6 RATIO (10-20); Calcium,Total 9.3 mg/dL (8.5-10.1); Chloride 106 mmol/L (98-107); Creatinine, Serum 0.81 mg/dL (0.55-1.02); EST Glomerular Filtration Rate 89 mL/min (>60); Est Glom Filt Rate - Afr Amer 108 mL/min (>60); Globulin 3.7 g/dL (2.2-4.2); Glucose 85 mg/dL (74-106); Potassium 3.8 mmol/L (3.5-5.1); Protein, Total 7.8 g/dL (6.4-8.2); Sodium Level 139 mmol/L (136-145)
[2022-01-16 20:07] LABS: HCV Quant. RNA PCR HCV Not Detected IU/mL (.)
[2022-01-18 17:01] LABS: HPV Reflexed? NOT INDICATED
== END | disposition home or self-care (01) ==
PROVIDERS: Referring Provider Obstetrics & Gynecology; Visit Provider Obstetrics & Gynecology
DX: Z12.4 Encounter for screening for malignant neoplasm of cervix (principal)
CPT/HCPCS: 36415; 80053; 85025; 87522; 88175; G0145

== ENCOUNTER → 2022-02-14 | Outpatient (CLI) | payer MEDICAID, SELFPAY ==
--- NOTE | 2022-02-14 | IMM_PTH ---
PATIENT: RONIT MARTINEZ LOC: [facility] U#:[id number] AGE/SX: 26/F ROOM: RE02/14/[address]: Dr. Joi Sherwood DO : 1995 BED: DIS: 02/14/2022 SPEC #: [id number] RECD: 02/18/22 11:54 STATUS: LENI REJesica #: [id number] NILAM: 02/14/22 00:[address]: Joi Sherwood DEPT: IMMUNOHISTOCHEMISTRY RECD BY: Rochelle Soto ENTERED: 02/18/22 11:55 SP TYPE: IMMUNO OTHR DR: Elaine Primary Care Phys Tissues: A - Endocervical B - Uterine cervix, NOS Procedures: p16 (initial) KI-67 (add) PHYSICIAN & INSTITUTION [place] [id number] SPECIMEN INFORMATION: Tissue Source: A ? Endocervical curettings, B ? Cervix 5 o?clock Clinical Info: LAVELLE Specimen Number: [id number] A & B CPT code: 97723 x2, 68097 x2 METHODOLOGY: Deparaffinized sections of prefer/formalin-fixed tissue or PAP/DQ stained slides are incubated with monoclonal/polyclonal antibodies/oligonucleotide probes. Localization is made via biotin free immunoperoxidase method. Appropriate controls are performed and reacted as expected. Results on target cell population are indicated in the following table: RESULTS: ANTIBODY / CLONE RESULT Block A P16 (E6H4) negative Ki-67 (30-9) negative Block B P16 (E6H4) positive, block-like Ki-67 (30-9) positive, moderate These tests were developed and their performance characteristics determined by [facility]. They may not have been cleared or approved by the U.S. Food and Drug Administration. The FDA has determined that such clearance or approval is not necessary. The above immunohistochemical/dualISH markers are ordered and reviewed by the Pathologist. INTERPRETATION: A. Endocervix, curettings: No evidence of dysplasia. B. Cervix, 5 o?clock, biopsy: Moderate squamous dysplasia, ALICIA II (HSIL). AM:elton 02/19/2022 Case has been reviewed in consultation with Dr. Hanna who concurs with the above diagnosis. IDC:KIM
--- NOTE | 2022-02-14 14:45 | ECC_PTH ---
PATIENT: RONIT MARTINEZ LOC: [facility] U#:[id number] AGE/SX: 26/F ROOM: RE02/14/[address]: Dr. Joi Sherwood DO : 1995 BED: DIS: 02/14/2022 SPEC #: [id number] RECD: 02/14/22 17:27 STATUS: LENI SILVANA #: [id number] NILAM: 02/14/22 14:[address]: Joi Sherwood DEPT: SURGICAL PATHOLOGY RECD BY: Leonard Pagan ENTERED: 02/15/22 09:47 SP TYPE: ECC ANGIE DR: No Primary Care Phys Tissues: A - Endocervical B - Endocervical Procedures: Surgery Specimen Level IV HEADER OPERATION: Colposcopy PRE-OP DIAGNOSIS: LGSIL TISSUE SUBMITTED: A ? Endocervical curettings, B ? Cervix 5 o?clock MICROSCOPIC DIAGNOSIS A. Endocervix, curettings: Rare strips of benign superficial endocervix. No evidence of dysplasia. See comment. B. Cervix at 5 o?clock, biopsy: Moderate squamous dysplasia, ALICIA II (HSIL). Changes consistent with HPV cytopathic effect. Chronic inflammation and focal acute inflammation. See comment. AM:elton 02/18/2022 COMMENT A & B. Results from immunohistochemistry ([id number]) for surrogate HPV marker (p16) will be reported separately. Case has been reviewed in consultation with Dr. Hanna who concurs with the above diagnosis. IDC:SJ MICROSCOPIC DESCRIPTION Slides are reviewed. GROSS DESCRIPTION A - Received in fixative is one container labeled with the patient's name and designated endocervical curettings. The specimen consists of a scant amount of soft tissue. The specimen is totally submitted for cell block preparation. B - Received in fixative is one container labeled with the patient's name and designated cervix 5 o'clock. The specimen consists of one irregular fragment of light dickinson soft tissue that measures 0.5 x 0.2 x 0.1 cm. The specimen is totally submitted in one cassette. / KIM:elton 02/15/2022 TC:0 CPT: 83344 x2
== END | disposition home or self-care (01) ==
PROVIDERS: Visit Provider Obstetrics & Gynecology
DX: N87.1 Moderate cervical dysplasia (principal)
CPT/HCPCS: 88305; 88341; 88342

== ENCOUNTER 2022-04-09 14:51 | Day surgery (SDC) | payer MEDICAID, SELFPAY ==
[2022-04-09] VITALS (8 sets, daily range): BP systolic 101–118; BP diastolic 62–77; PULSE 53–67; RESP 16–18; TEMP 36.7–37.1; O2SAT 99–100; BMI 21.9
--- NOTE | 2022-04-09 | IMM_PTH ---
PATIENT: RONIT MARTINEZ LOC: [facility] [place] U#:[id number] AGE/SX: 26/F ROOM: RE04/09/[address]: Dr. Joi Sherwood DO : 1995 BED: DIS: 04/09/2022 SPEC #: [id number] RECD: 04/11/22 14:30 STATUS: LENI REJesica #: [id number] NILAM: 04/09/22 00:[address]: Joi Sherwood DEPT: IMMUNOHISTOCHEMISTRY RECD BY: Leonard Pagan ENTERED: 04/11/22 14:31 SP TYPE: IMMUNO OTHR DR: No Primary Care Phys Tissues: Uterine cervix, NOS Procedures: p16 (initial) KI-67 (add) P16 (add) PHYSICIAN & INSTITUTION [place] [id number] SPECIMEN INFORMATION: Tissue Source: [facility] colette Clinical Info: ALICIA III, abnormal pap smear of cervix Specimen Number: [id number], block 3 and 4 CPT code: 46006, 53781 x3 METHODOLOGY: Deparaffinized sections of prefer/formalin-fixed tissue or PAP/DQ stained slides are incubated with monoclonal/polyclonal antibodies/oligonucleotide probes. Localization is made via biotin free immunoperoxidase method. Appropriate controls are performed and reacted as expected. Results on target cell population are indicated in the following table: RESULTS: ANTIBODY / CLONE RESULT Block 3 P16 (E6H4) negative Ki-67 (30-9) negative Block 4 P16 (E6H4) positive, focal minimal patchy staining Ki-67 (30-9) negative These tests were developed and their performance characteristics determined by [facility]. They may not have been cleared or approved by the U.S. Food and Drug Administration. The FDA has determined that such clearance or approval is not necessary. The above immunohistochemical/dualISH markers are ordered and reviewed by the Pathologist. INTERPRETATION: LEEP cone: Focal minimal changes suspicious for HPV cytopathic effects. /SJ :cc 04/12/2022
--- NOTE | 2022-04-09 10:24 | HP.PCM_ITS ---
History and Physical Date of Admission: 04/09/22 Intake Vital Signs ? 03/19/2215:45 03/19/2215:47 Height 5 ft 4 in 5 ft 4 in Weight: 128 lb 6 oz ? BMI 22.0 ? BP 131/74 H ? 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 ALICIA II (cervical intraepithelial neoplasia II) Hepatitis C Social History? Smoking Status:? Current every day smoker alcohol intake:? never substance use type:? does not use caffeine:? Yes what type of physical activity do you participate in:? walking frequency:? 3-4 times per week seatbelt use:? always do you feel safe at home:? Yes additional social history:? Boyfriend-Rigo HPI LEEP Details: RONIT MARTINEZ is a 26 year old who presents for pre-operative examination and counseling. She was found to have a cervical biopsy consistent with CINII. She is currently scheduled for a LEEP procedure. The etiology and risks of possible cervical cancer were discussed with the patient. One major risk factor for development into cervical cancer is smoking. She currently smokes a pack of cigarettes a day and is interested in quitting. History ? ? ? 2 ? Elective abortions ? Hx Para ? ? ? 2 ? Spontaneous abortions ? Hx # Term Pregnancies ? Ectopic pregnancies ? Hx # Pregnancies ? Multiple births ? # of living children ? ? ? 2 Past Pregnancies Del. Date Name GA/Weeks Outcome Route Bth Weight Gen Labor Lgth Anesthesia Del Locatn Provider FOB 09/10/11 Vincent 39 live - full term 7lbs 1oz Male 1 3 hours epidural [facility] Dr. Cyrus Santana 09/26/19 [facility] ? live - full ter m ? Male ? ? [facility] Dr. Cinthia Bridges ? Delivery Date: 09/10/11? Last Updated by: Genesis Covarrubias ? ? ? No issues during or delivery. Delivery Date: 09/26/19? Last Updated by: Genesis Covarrubias ? ? ? VAVD, bradycardia ROS Const ROS Unobtainable: All systems reviewed & are unremarkable except as noted in H Resp Resp: Reports system reviewed and no additional complaints, except as documented; Denies cough GI GI: Reports as per HPI Psych Psych: Reports system reviewed and no additional complaints, except as documented Exam Const General: cooperative, healthy appearing, comfortable and no acute distress Resp Effort & Inspection: normal respiratory effort Skin General: no rashes or lesions noted Psych Appearance: grossly normal Speech and Movement: speech and movement normal Coding Level of Care Code Off vis,est,level 4 Diagnoses ALICIA II (cervical intraepithelial neoplasia II)? N87.1 Abnormal Pap smear of cervix? R87.619 History of hepatitis C? Z86.19 History of drug abuse in remission? F19.11 Smoker? F17.200 Assessment and Plan Assessment and Plan (1) ALICIA II (cervical intraepithelial neoplasia II): ?Status:?Acute ?Comment: needs LEEP ?Plan: After discussing the patient's diagnosis and treatment plan options, patient wishes to proceed with surgical management.? I have discussed with the patient the risks, benefits, and alternatives of the procedure which include but are not limited to risks of anesthesia, bleeding, infection, possible damage to bowel, bladder, or surrounding vasculature which could lead to additional surgery to evaluate any complications.? Patient agrees to procedure and wishes to proceed.? ACOG/uptodate references given for additional information regarding procedure.? The plan is for a LEEP procedure. pre and post op instructions discussed today. 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 Random tox screen (5) Smoker: ?Status:?Acute ?Plan: rx or nicotine patch ordered. pt is going to hopefully try to quit after long discussion about risk of cervical cancer ? ? ? Medications: New nicotine (Nicoderm CQ) 1 patch? transdermal Q24H 28 ea 0RF ? ? UPDATE- I have seen the patient and performed any clinically relevant updates to the history and physical exam. Joi Sherwood, DO
[2022-04-09] MEDS: Lactated Ringers 1,000 ML 15 ML IV (15:05)
[2022-04-09 15:33] LABS: Internal QC Validated? YES +Cl - CLEAR BKGD; Pregnancy, Urine Negative Negative
[2022-04-09 15:50] LABS: Hematocrit 41.9 % (37-47); Hemoglobin 13.9 g/dL (12.0-15.0); Mean Corp Hgb Conc 33.2 g/dL (32-36); Mean Corpuscular Volume 96.3 fL (81-99); Mean Platelet Vol. 11.2 fl (6.2-12.0); Platelet Count 301 K/mm3 (150-450); RBC Distribution Width CV 12.4 % (11.6-14.6); RBC Distribution Width SD 44.3 fl (35.1-43.9); Red Blood Count 4.35 M/mm3 (4.2-5.4); White Blood Count 12.9 K/mm3 (4.4-11.0)
--- NOTE | 2022-04-09 16:23 | DCINST_ITS ---
Discharge Instructions Diet Discharge Diet: No restrictions Activity Discharge Activity: Return to Normal Activity and [address] Drive (while taking narcotic pain mediations.) May resume sexual activity in: 4 weeks (Nothing in the vagina for 4 weeks.) Dressing / Incision Call your doctor if you observe: Fever of 101 or Higher and Using more than 1 pad per hour Follow Up Care Please Follow Up With: Joi Sherwood DO When: Call [phone] for follow-up appointment. Test Results: Test results from this visit will be discussed in further detail at your follow- up appointment, if applicable. Discharge Plan Admission Primary Reason for Your Visit: ARISTIDES Attending Provider: Joi Sherwood Primary Care Provider: Care Physician,Elaine Primary Discharge Orders/Prescriptions Prescriptions: New naproxen 250 mg tablet 500 mg PO Q8H PRN PRN (Reason: Mild Pain ) Qty: 30 0RF No Action medroxyprogesterone [Depo-Provera] 150 mg/mL syringe 150 mg IM [id number] Qty: 1 3RF Referrals / Follow Up: Care Physician,No Primary [Primary Care Provider] - Disposition Disposition (needs filled in before D/C Order can be placed): Home, Self Care
--- NOTE | 2022-04-09 16:24 | PCM.OP.BLANK ---
Problems Associated Problem List Diagnoses (1) History of drug abuse in remission: (2) History of hepatitis C: (3) Abnormal Pap smear of cervix: (4) Smoker: Operative Report Date of Procedure: 04/09/22 preoperative diagnosis: HSIL, ALICIA II postoperative diagnosis: HSIL, ALICIA II procedure: Loop electrocautery excisional procedure anesthesia: mac/local Surgeon: Dr. Joi Sherwood DO EBL: Urine: Fluids: Details: Patient was taken to the operating room and placed under MAC anesthesia prepped and draped in normal sterile fashion the dorsal lithotomy position. Paracervical block was placed with 1% lidocaine and using a loop electrode the outer part of the cervix was removed including the squamocolumnar junction. The base of the cervix was cauterized around the borders and the base to obtain excellent hemostasis. Monsel's paste was placed and patient was awoken and taken recovery in stable condition. Procedures Urinary/Genital 52xxx-59xxx: 72320 LEEP
--- NOTE | 2022-04-09 16:30 | CONE_PTH ---
PATIENT: RONIT MARTINEZ [place] [facility] [place][id number] AGE/SX: 26/F ROOM: RE04/09/[address]: Dr. Joi Sherwood DO : 1995 BED: DIS: 04/09/2022 SPEC #: [id number] RECD: 04/10/22 08:32 STATUS: LENI SILVANA #: [id number] NILAM: 04/09/22 16:[address]: Joi Sherwood DEPT: SURGICAL PATHOLOGY RECD BY: Antonella Friedman ENTERED: 04/10/22 11:51 SP TYPE: Leep Cone ANGIE DR: Elaine Primary Care Phys Tissues: UTERINE CERVIX LEEP Procedures: Surgery Specimen Level V HEADER OPERATION: LEEP cone PRE-OP DIAGNOSIS: ALICIA III, abnormal pap smear of cervix TISSUE SUBMITTED: LEEP specimen MICROSCOPIC DIAGNOSIS Cervix, LEEP: Focal minimal changes suspicious for HPV cytopathic effects. Chronic inflammation and squamous metaplasia. Resection margins are free of dysplastic changes. /SJ 04/12/22 COMMENT Immunohistochemistry ([id number]) supports the above diagnosis. Correlation with clinical findings and appropriate follow up are necessary. MICROSCOPIC DESCRIPTION Slides are reviewed. GROSS DESCRIPTION Received in fixative is one container labeled with the patient's name and designated [facility]. The specimen consists of a piece of dickinson indurated tissue measuring 2 x 2 x 1.0 cm. the specimen is not oriented. No mucosal lesion is noted. Non-mucosal surface is inked black. Endocervical margin is inked blue. The specimen is serially sectioned and totally submitted in four casssttes. /KIM:roly 04/10/2022 TC:5 [facility]:[id number]
[2022-04-09] MEDS: Lidocaine 1% (30 ml sdv) 30 ML Vial (17:00)
[2022-04-09] MEDS: Iodine/Potassium Iodide 14ML Bottle 1 DRP TOPICAL (17:00)
[2022-04-09] MEDS: FERRIC SUBSULFATE 8 GM SOLN (17:01)
== END 2022-04-09 18:26 | disposition home or self-care (01) ==
LOC: SDC 14:55 → AC 14:55
PROVIDERS: Visit Provider Obstetrics & Gynecology
PROC: 0UBC7ZZ Excision of Cervix, Via Natural or Artificial Opening (ICD-10-PCS; CPT 57522; principal; 2022-04-09 16:15)
DX: N87.1 Moderate cervical dysplasia (principal); F17.200 Nicotine dependence, unspecified, uncomplicated; Z86.19 Personal history of other infectious and parasitic diseases
CPT/HCPCS: 57522; 00940; 81025; 85027; 88307; 88341; 88342; J7120; J2405

== ENCOUNTER → 2023-03-17 | Outpatient (CLI) | payer MEDICAID, SELFPAY ==
[2023-03-24 21:07] LABS: HPV APTIMA, High Risk Negative (Negative)
[2023-03-28 17:52] LABS: HPV Reflexed? YES, CHARGE PATIENT
== END | disposition home or self-care (01) ==
LOC: LABSPEC 15:29
PROVIDERS: Referring Provider Nurse Practitioner Women's Health; Visit Provider Nurse Practitioner Women's Health
DX: R87.619 Unspecified abnormal cytological findings in specimens from cervix uteri (principal); Z12.4 Encounter for screening for malignant neoplasm of cervix
CPT/HCPCS: 87624; 88175; G0145

== ENCOUNTER → 2024-03-01 | Outpatient (CLI) | payer MEDICAID, SELFPAY ==
[2024-03-06 14:32] LABS: HPV Reflexed? NOT INDICATED
== END | disposition home or self-care (01) ==
LOC: LABSPEC 14:05
PROVIDERS: Referring Provider Nurse Practitioner Women's Health; Visit Provider Nurse Practitioner Women's Health
DX: Z12.4 Encounter for screening for malignant neoplasm of cervix (principal); N87.1 Moderate cervical dysplasia
CPT/HCPCS: 88175; G0145

== ENCOUNTER → 2024-05-24 | Outpatient (CLI) | payer MEDICAID, SELFPAY ==
[2024-05-24 15:07] LABS: Absolute Lymphocyte Count 3.38 X10^3/uL (0.83-4.51); Absolute Neutrophil Count 4.6 X10^3/uL (2.0-7.7); Basophil# 0.02 X10^3/uL; Basophil% 0.2 % (0-1); Eosinophil# 0.35 X10^3/uL; Eosinophils% 3.8 % (0-5); Hematocrit 40.5 % (37-47); Hemoglobin 13.5 g/dL (12.0-15.0); Lymphocyte # 3.38 X10^3/ul (0.83-4.51); Lymphocyte % 37.1 % (19-41); Mean Corp Hgb Conc 33.3 g/dL (32-36); Mean Corpuscular Hgb 31.3 pg (27.0-32.0); Mean Platelet Vol. 10.5 fl (6.2-12.0); Monocyte# 0.72 X10^3/uL; Monocyte% 7.9 % (0-10); NRBC Flagged by Analyzer 0 % (0-5); Neutrophil # 4.63 X10^3/uL (2.7-7.7); Neutrophil % 50.8 % (47-70); Platelet Count 319 K/mm3 (150-450); RBC Distribution Width CV 13.2 % (11.6-14.6); RBC Distribution Width SD 45.7 fl (35.1-43.9); Red Blood Count 4.31 M/mm3 (4.2-5.4); White Blood Count 9.1 K/mm3 (4.4-11.0)
[2024-05-24 15:26] LABS: Vitamin D,25 Hydroxy 18.6 ng/mL
[2024-05-24 15:32] LABS: ALB/GLOB Ratio 1.2 RATIO (0.9-2.4); AST(SGOT) 14 U/L (15-37); Alanine Aminotransfer ALT/SGPT 22 U/L (13-56); Albumin, Serum 4.2 g/dL (3.2-5.0); Alkaline Phosphatase 59 U/L (45-117); Anion Gap 6 (5-15); BUN 6 mg/dL (7-18); BUN/Creat Ratio 7.7 RATIO (10-20); Calcium,Total 9.3 mg/dL (8.5-10.1); Chloride 107 mmol/L (98-107); Creatinine, Serum 0.78 mg/dL (0.55-1.02); EST Glomerular Filtration Rate 93 mL/min (>60); Est Glom Filt Rate - Afr Amer 112 mL/min (>60); Globulin 3.6 g/dL (2.2-4.2); Glucose 86 mg/dL (74-106); Potassium 3.8 mmol/L (3.5-5.1); Protein, Total 7.8 g/dL (6.4-8.2); Sodium Level 139 mmol/L (136-145); T4 Free Direct 1.05 ng/dL (0.76-1.46)
== END | disposition home or self-care (01) ==
LOC: BWCLAB 14:33
PROVIDERS: Referring Provider Nurse Practitioner Family; Visit Provider Nurse Practitioner Family
DX: R61 Generalized hyperhidrosis (principal); Z13.29 Encounter for screening for other suspected endocrine disorder; Z86.19 Personal history of other infectious and parasitic diseases
CPT/HCPCS: 36415; 80053; 82306; 84439; 84443; 85025

== ENCOUNTER → 2025-05-25 | Outpatient (CLI) | payer MEDICAID, SELFPAY ==
--- OUTSIDE RECORDS SUMMARY | 2025-05-25 14:42 | XMS RPT_ITS | CCD ---
Author Organization [facility] Care Team Providers Care Personal Development Mentor Name Role Phone Unavailable Primary Care Provider Unavailabl e Care Physician, No Primary Primary Care Provider Unavailable Care Physician, No Primary Referring Provider Un available Dr. Cinthia Bridges Attending Provider [phone] Joi Sherwood Attending Provider [phone] Unavailable Primary Care Provider UnavailSANTANA Chacon Attending Unavailable Care Physician, No Primary Primary Care Provider Unavailable Care Physician, No Primary Referring Provider Un available Valorie PAGINATOR, PAGINATOR-C Stacy Attending Provider [phone] Karolyn COMBS-CSusanna Attending Provider [phone] Dr. Cinthia Bridges MD Attending Provider [phone] Susanna Parr Attending Unavailable Cinthia Bridges Attending Unavailable Valorie PAGINATOR, Stacy Attending Unavailable Valorie PAGINATOR, Stacy Attending Unavailable Valorie PAGINATOR, Stacy Referring Unavailable Valorie PAGINATOR, Stacy Attending Unavailable Susanna Parr Referring Unavailable Susanna Parr Attending Unavailable Susanna Parr Attending Unavailable Dr. Cinthia Bridges MD Attending Physician Valorie COMBS-CStacy Attending Physician [phone] Medications Current Medications Medication Drug Class(es) Dates Sig (Normalized) Sig (Original) amoxicillin 875 mg / clavulanate 125 mg oral tablet (1 source) Penicillin-class Antibacterial Start: 01-25-20 End: 02-01-20 22 take 1 tablet by mouth twice daily amoxicillin-clavulanic acid (AUGMENTIN) 875-125 mg per tablet Indications: Sinobronchitis , Acute otitis media, right Take 1 tablet by mouth twice daily for 7 days. 14 tablet 0 01/24/2022 01/31/2022 Active Comment on above: Take 1 tablet by edgardo twice daily for 7 days. Medroxyprogesterone 150 mg/mL syringe (1 source) Start: 05-14-20 inject 150 mg by intramuscular injection every three months Medroxyprogesterone 150 mg/mL syringe Active 150 mg IM every 3 months 1 May 14, 2024 4:15pm predniSONE 10 mg oral tablet (1 source) Start: 09-19-19 End: 09-24-19 take 5 tablets by mouth once daily, then take 4 tablets by mouth once daily, then take 3 tablets by mouth once daily, then take 2 tablets by mouth once daily, then take 1 tablet by mouth once daily predniSONE (DELTASONE) 10 mg tablet Indications: History of smoking Take 5 tablets by mouth once daily for 1 day, THEN 4 tablets once daily for 1 day, THEN 3 tablets once daily for 1 day, THEN 2 tablets once daily for 1 day, THEN 1 tablet once daily for 1 day. 15 tablet 0 09/18/2022 09/23/2022 Active Comment on above: Take 5 tablets by [facility] once daily for 1 day, THEN 4 tablets once daily for 1 day, THEN 3 tablets once daily for 1 day, THEN 2 tablets once daily for 1 day, THEN 1 tablet once daily for 1 day. Completed/Discontinued Medications Medication Drug Class(es) Dates Sig (Normalized) Sig (Original) 24 hr buPROPion hydrochloride 150 mg extended release oral tablet (2 sources) Aminoketone Start: 01-16-20 16 End: 09-19-19 take 1 tablet by mouth once daily buPROPion XL (WELLBUTRIN XL) 150 mg 24 hr tablet Indications: depression , Adjustment insomnia Take 1 tablet by mouth once daily. 30 tablet 13 01/16/2016 09/18/2022 Discontinued Comment on above: Take 1 tablet by [facility] once daily. fluconazole 150 mg oral tablet (4 sources) Azole Antifungal Start: 01-20-20 End: 02-02-20 take 1 tablet by mouth once Fluconazole (Diflucan) 150 mg tablet Discontinued 150 mg PO ONCE 1 0 January 20, 2020 12:00am February 02, 2020 10:23am fluticasone propionate 0.05 mg/actuat metered dose nasal spray (2 sources) Corticosteroid Start: 01-25-20 take 2 spray(s) by mouth once daily fluticasone (FLONASE) 50 mcg/actuation nasal spray Indications: Sinobronchitis , Acute otitis media, right Use 2 Sprays in each nostril once daily. Rinse mouth after use. 1 Each 0 01/24/2022 Active Comment on above: Use 2 Sprays in each nostril once daily. Rinse mouth after use. ibuprofen 600 mg oral tablet (4 sources) Nonsteroidal Anti-inflammatory Drug Start: 08-31-19 End: 03-01-20 take 1 tablet by mouth every eight hours as needed for pain Ibuprofen 600 MG tablet Discontinued 600 mg PO EVERY 8 HOURS NEEDED as needed for Pain 21 0 August 30, 2018 12:00am March 01, 2019 2:33pm 1 ml medroxyPROGESTERone acetate 150 mg/ml prefilled syringe (20 sources) Progestin Start: 11-10-19 End: 05-14-20 inject 150 mg by intramuscular injection every three months Medroxyprogesterone (Depo-Provera) 150 mg/mL syringe Discontinued 150 mg IM every 3 months 1 March 18, 2023 3:43pm March 01, 2024 1:19pm Start: 01-28-2017 medroxyPROGEST ERone (DEPO-PROVERA) 150 mg/mL syrg Inject 1 mL intramuscularly every 12 weeks. 1 mL 0 01/28/2017 Active Comment on above: Inject 1 mL intramus cularly every 12 weeks. Multivit 22-Tnss-Rwboib 6-Dha (Prenate Dha) 28 mg iron-1 mg -300 mg capsule (2 sources) Start: 9 End: 0 Multivit 05-Gjhh-Wphnmg 6-Dha (Prenate Dha) 28 mg iron-1 mg -300 mg capsule Discontinued 1 NMA PO .daily 90 March 02, 2019 12:00am June 25, 2019 10:00am naproxen 250 mg oral tablet (7 sources) Nonsteroidal Anti-inflammatory Drug Start: 2 End: 3 take 2 tablets by mouth every eight hours as needed for pain Naproxen 250 mg tablet Discontinued 500 mg PO EVERY 8 HOURS NEEDED as needed for Mild Pain 30 0 April 09, 2022 1:00am September 30, 2022 2:06pm Start: 04-09-2022 End: 09-30-2022 take 500 mg by mouth every eight hours as needed Naproxen Discontinued 500 MG PO EVERY 8 HOURS NEEDED April 09, 2022 1:00am September 30, 2022 2:06pm Start: 12-04-2018 End: 03-01-2019 take 1 tablet by mouth twice daily as needed Naproxen 500 MG tablet Discontinued 500 mg PO TWICE DAILY NEEDED December 04, 2018 12:00am March 01, 2019 2:34pm penicillin v potassium 500 mg oral tablet (4 sources) Start: 12-04-2018 End: 03-01-2019 take 1 tablet by mouth four times daily Penicillin V Potassium 500 MG tablet Discontinued 500 mg PO 4 TIMES DAILY 40 0 December 04, 2018 12:00am March 01, 2019 2:34pm phenazopyridine hydrochloride 100 mg oral tablet (2 sources) Start: 12-01-2015 End: 09-18-2022 take 1 tablet by mouth every eight hours as needed for urinary tract infection and urinary tract infection phenazopyridine (PYRIDIUM) 100 mg tablet Indications: Urinary tract infection, site unspecified Take 1 tablet by mouth three times daily as needed for Pain. 12 tablet 0 12/01/2015 09/18/2022 Discontinued Comment on above: Take 1 tablet by edgardo three times daily as needed for Pain. Vit No.539-Aoqa-Fpfek (2 sources) Start: 09-26-2019 End: 01-04-2021 take 1 tablet by mouth once daily Vit No.526-Wive-Opazq Discontinued 1 TABLET PO DAILY September 26, 2019 12:00am January 04, 2021 11:08am Vit No.525-Gdza-Cnbgn 1 EACH tablet (2 sources) Start: 09-26-2019 End: 01-04-2021 take 1 tablet by mouth once daily Vit No.453-Sjct-Awxtz 1 EACH tablet Discontinued 1 {tbl} PO DAILY September 26, 2019 12:00am January 04, 2021 11:08am [id number]-rshr fum 28 mg iron-folate no.6 1 mg-dha 300 mg capsule (2 sources) Start: 03-02-2019 End: 06-25-2019 take 1 capsule by mouth once daily [id number]-nyin fum 28 mg iron-folate no.6 1 mg-dha 300 mg capsule Discontinued 1 CAP PO .daily March 02, 2019 12:00am June 25, 2019 10:00am traZODone hydrochloride 50 mg oral tablet (2 sources) Serotonin Reuptake Inhibitor Start: 01-16-2016 End: 09-18-2022 take 1 tablet by mouth once daily at bedtime traZODone (DESYREL) 50 mg tablet Indications: depression , Adjustment insomnia Take 1 tablet by mouth daily at bedtime. 30 tablet 13 01/16/2016 09/18/2022 Discontinued Comment on above: Take 1 tablet by edgardo th daily at bedtime. Problems Active Problems Problem Classification Problem Date Documented Date Episodic/Chronic Headache; including migraine (4 sources) Migraine with aura; Translations: [Migraine with aura, not intractable, without status migrainosus] 11-21-2017 Chronic Other female genital disorders (3 sources) Cervical intraepithelial neoplasia grade 2; Translations: [Moderate cervical dysplasia] 03-17-2023 Episodic Comment on above: 03/2022 LEEP, repeat pap in 1 year. 02/2023:ASCUS neg HPV; 02/2024: Other female genital disorders (1 source) Moderate cervical dysplasia; Translations: [Moderate dysplasia of cervix] 03-17-2023 Episodic Other infections; including parasitic (4 sources) History of hepatitis C; Translations: [Personal history of other infectious and parasitic diseases] 09-26-2019 Episodic Comment on above: RNA and CMP nl/neg Other skin disorders (2 sources) Sweating 05-24-2024 Episodic Other upper respiratory infections (2 sources) Chronic sinusitis; Translations: [Chronic sinusitis, unspecified] Onset: 01-24-2022 Chronic Other upper respiratory infections (1 source) Acute upper respiratory infection; Translations: [Acute upper respiratory infection, unspecified] Episodic Screening and history of mental health and substance abuse codes (1 source) Tobacco use and exposure - finding; Translations: [Personal history of nicotine dependence] Episodic Substance-related disorders (10 sources) History of drug abuse; Translations: [Other psychoactive substance abuse, 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 Random tox screen Past or Other Problems Problem Classification Problem Date Documented Date Episodic/Chronic Chronic obstructive pulmonary disease and bronchiectasis (1 source) Bronchitis, not specified as acute or chronic; Translations: [Sinobronchitis] Onset: 01-24-2022 Episodic Contraceptive and procreative management (10 sources) Patient encounter status; Translations: [Encounter for contraceptive management, unspecified] Onset: 01-20-2014 03-16-2015 Episodic Comment on above: depo Other infections; including parasitic (3 sources) Personal history of other infectious and parasitic diseases; Translations: [Personal history of other infectious and parasitic diseases] Onset: 05-24-2024 Episodic Other screening for suspected conditions (not mental disorders or infectious disease) (4 sources) Abnormal cervical Papanicolaou smear; Translations: [Unspecified abnormal cytological findings in specimens from cervix uteri] Onset: 03-22-2024 Episodic Other skin disorders (1 source) Generalized hyperhidrosis; Translations: [Generalized hyperhidrosis] Onset: 06-18-2024 Episodic Otitis media and related conditions (2 sources) Acute right otitis media; Translations: [Otitis media, unspecified, right ear] Onset: 01-24-2022 Episodic Results Test Name Value Interpretation Reference Range Facility Office Visit Reporton 2024 Office Visit Report [facility] [address] [place] [address] OFFICE VISIT Date of Service: 02/22/25 MR#: [id number] Acct: [id number] Patient: HILDA HORNE SEPTEMBER Rep #: [id number] : 1995 Provider: ASHLEY juarez Age/Sex: 29/F Location[place] [facility] [place] Status: Signed Intake Vital Signs 11/19/24 14:21 02/22/25 14:50 Height 5 ft 4 in 5 ft 4 in Weight: 138 lb 136 lb 3 oz BMI 23.6 23.3 BP 124/79 H Intake Visit Reasons: DEPO *ok per triage Chief Complaint: Depo Cafeteria Server Required: No Is patient in pain?: No Allergies No Known Allergies Allergy (Verified 02/22/25 14:50) Medications ???Medication ???Instructions ???Recorded ???Confirmed ???Type medroxyprogesterone 150 mg/mL 150 mg IM [id number] #1 mL 05/14/24 02/22/25 Rx intramuscular syringe Post menopausal: No Patient : No Have you fallen in the past year?: No Office Meds Depo-Provera 150 mg/mL intramuscular syringe Performing Provider: ASHLEY Ascencio NP Performing Location: [facility] Administered by: Genesis Covarrubias on 02/22/25 14:53 Dose Route Admin Location Dispensed Lot Number Expiration Date Package NDC NDC Dice Table Operator 150 mg IM right gluteus 1 mL [id number] 10/23/25 07136-22041 [id number] Huma alice Borgesmarilee Assessment and Plan Assessment and Plan (1) Contraception management: Status: Acute Qualifiers: Contraceptive encounter type: surveillance Contraceptive type: injectable Qualified Code(s): Z30.42 - Encounter for surveillance of injectable contraceptive Comment: depo Orders: Orders Depo-Provera Injection - Home Med Today Z30.42 - Encounter for surveillance of injectable contraceptive Clinical Quality Measures Falls Risk Screening/Assistive Devices Have you fallen in the past year?: No 02/22/25 1537 Date Stacy RAMIREZ Cosigner Signature: Date (if applicable) CC: Normal [facility] Office Visit Reporton 2024 Office Visit Report [facility] [address] [place] [address] OFFICE VISIT Date of Service: 11/19/24 MR#: [id number] Acct: [id number] Patient: HILDA HORNE Rep #: [id number] : 1995 Provider: Dr. Cinthia thomas MD Age/Sex: 29/F Location[place] [facility] [place] Status: Signed Intake Vital Signs 08/20/24 14:32 11/19/24 14:21 Height 5 ft 4 in 5 ft 4 in Weight: 146 lb 138 lb BMI 25.0 23.6 BP 116/71 124/79 H Intake Visit Reasons: DEPO Chief Complaint: Depo Cafeteria Server Required: No Is patient in pain?: No Allergies No Known Allergies Allergy (Verified 11/19/24 14:21) Medications ???Medication ???Instructions ???Recorded ???Confirmed ???Type medroxyprogesterone 150 mg/mL 150 mg IM [id number] #1 mL 05/14/24 11/19/24 Rx intramuscular syringe Is last menstrual period known: No Post menopausal: No Patient : No Have you fallen in the past year?: No Nurse's Note: Patient presents for depo injection. Patient states she does not have periods while on the depo and has not had any break through bleeding at this time. Denies any adverse reactions, complaints, or questions at this time. Given depo injection IM to left gluteal, patient tolerated well. Office Meds Depo-Provera 150 mg/mL intramuscular syringe Performing Provider: Cinthia Bridges MD Performing Location: [facility] Administered by: Joseline Ramirez on 11/19/24 14:23 Dose Route Admin Location Dispensed Lot Number Expiration Date NDC Man ufacturer 150 mg IM left gluteal 1 mL [id number] 10/23/25 [address]-4 AMNEAL B IOSCIEN Assessment and Plan Assessment and Plan (1) Contraception management: Status: Acute Qualifiers: Contraceptive encounter type: surveillance Contraceptive type: injectable Qualified Code(s): Z30.42 - Encounter for surveillance of injectable contraceptive Comment: depo Orders: Orders Depo-Provera Injection - Home Med 11/19/24 Z30.42 - Encounter for surveillance of injectable contraceptive Clinical Quality Measures Falls Risk Screening/Assistive Devices Have you fallen in the past year?: No 11/22/24 1235 Date [facility]: Date (if applicable) CC: Normal [facility] Office Visit Reporton 2024 Office Visit Report [facility] [address] [place] [address] OFFICE VISIT Date of Service: 08/20/24 MR#: [id number] Acct: [id number] Patient: HILDA HORNE Rep #: [id number] : 1995 Provider: ASHLEY Ramires Age/Sex: 29/F Location[place] [facility] Status: Signed Intake Vital Signs 05/24/24 14:16 08/20/24 14:32 Height 5 ft 4 in 5 ft 4 in Weight: 147 lb 8 oz 146 lb BMI 25.3 25.0 BP 106/71 116/71 Intake Visit Reasons: DEPO Chief Complaint: Depo Is patient in pain?: No Allergies No Known Allergies Allergy (Verified 08/20/24 14:32) Medications ???Medication ???Instructions ???Recorded ???Confirmed ???Type medroxyprogesterone 150 mg/mL 150 mg IM [id number] #1 mL 05/14/24 08/20/24 Rx intramuscular syringe Is last menstrual period known: No Post menopausal: No Office Meds Depo-Provera 150 mg/mL intramuscular syringe Performing Provider: ASHLEY Villatoro Performing Location: [facility] Administered by: Joyce Jasso on 08/20/24 14:35 Dose Route Admin Location Dispensed Lot Number Expiration Date NDC Man ufacturer 150 mg IM Left Gluteal 1 mL [id number] 10/22/25 [address]-0 AMNEAL B IOSCIEN Assessment and Plan Assessment and Plan Orders: Orders Depo-Provera Injection - Home Med Today Z30.42 - Encounter for surveillance of injectable contraceptive 08/20/24 1556 Date Susanna RAMIREZ Cosigner Signature: Date (if applicable) CC: Normal [facility] CBC W/Diff, Automatedon 12-3 Absolute Lymph 3.38 X10 3/uL Normal 0.83-4.51 [facility] Comment on above: Performed By: #### L 506.1000, L500.4050, L506.0400, L501.9520, L100.0100 #### [facility] [address] [place], [address] Absolute Neut 4.6 X10 3/uL Normal 2.0-7.7 [facility] Comment on above: Performed By: #### L 506.1000, L500.4050, L506.0400, L501.9520, L100.0100 #### [facility] [address] [place], [address] Basophils/100 WBC (Bld) 0.2 % Normal 0-1 [facility] Comment on above: Performed By: #### L 506.1000, L500.4050, L506.0400, L501.9520, L100.0100 #### [facility] [address] [place], [address] Eosinophils/100 WBC (Bld) 3.8 % Normal 0-5 [facility] Comment on above: Performed By: #### L 506.1000, L500.4050, L506.0400, L501.9520, L100.0100 #### [facility] [address] [place], [address] Erythrocyte distribution width (RBC) [Ratio] 13.2 % Normal 11.6-14.6 [facility] Comment on above: Performed By: #### L 506.1000, L500.4050, L506.0400, L501.9520, L100.0100 #### [facility] [address] [place], [address] Hematocrit (Bld) [Volume fraction] 40.5 % Normal 37-47 [facility] Comment on above: Performed By: #### L 506.1000, L500.4050, L506.0400, L501.9520, L100.0100 #### [facility] [address] [place], [address] Hemoglobin (Bld) [Mass/Vol] 13.5 g/dL Normal 12.0-15.0 [facility] Comment on above: Performed By: #### L 506.1000, L500.4050, L506.0400, L501.9520, L100.0100 #### [facility] [address] [place], [address] IG% 0.200 Normal 0.0-0.9 [facility] Comment on above: Result Comment: IG% - Immature Granulocytes (promyelocytes, myelocytes and metamyelocytes) > 1% indicates that a LEFT SHIFT is Present. Performed By: #### L 506.1000, L500.4050, L506.0400, L501.9520, L100.0100 #### [facility] [address] [place], [address] Lymphocytes/100 WBC (Bld) 37.1 % Normal 19-41 [facility] Comment on above: Performed By: #### L 506.1000, L500.4050, L506.0400, L501.9520, L100.0100 #### [facility] [address] [place], [address] MCH (RBC) [Entitic mass] 31.3 pg Normal 27.0-32.0 [facility] Comment on above: Performed By: #### L 506.1000, L500.4050, L506.0400, L501.9520, L100.0100 #### [facility] [address] [place], [address] MCHC (RBC) [Mass/Vol] 33.3 g/dL Normal 32-36 [facility] Comment on above: Performed By: #### L 506.1000, L500.4050, L506.0400, L501.9520, L100.0100 #### [facility] [address] [place], [address] MCV (RBC) [Entitic vol] 94.0 fL Normal 81-99 [facility] Comment on above: Performed By: #### L 506.1000, L500.4050, L506.0400, L501.9520, L100.0100 #### [facility] [address] [place], [address] Monocytes/100 WBC (Bld) 7.9 % Normal 0-10 [facility] Comment on above: Performed By: #### L 506.1000, L500.4050, L506.0400, L501.9520, L100.0100 #### [facility] [address] [place], [address] Neutrophils/100 WBC (Bld) 50.8 % Normal 47-70 [facility] Comment on above: Performed By: #### L 506.1000, L500.4050, L506.0400, L501.9520, L100.0100 #### [facility] [address] [place], [address] Nucleated RBC (Bld) [#/Vol] 0 10*3/uL Normal 0-5 [facility] Comment on above: Performed By: #### L 506.1000, L500.4050, L506.0400, L501.9520, L100.0100 #### [facility] [address] [place], [address] Platelet mean volume (Bld) [Entitic vol] 10.5 fL Normal 6.2-12.0 [facility] Comment on above: Performed By: #### L 506.1000, L500.4050, L506.0400, L501.9520, L100.0100 #### [facility] [address] [place], [address] Platelets (Bld) [#/Vol] 319 10*3/uL Normal 150-450 [facility] Comment on above: Performed By: #### L 506.1000, L500.4050, L506.0400, L501.9520, L100.0100 #### [facility] [address] [place], [address] RBC (Bld) [#/Vol] 4.31 10*6/uL Normal 4.2-5.4 [facility] Comment on above: Performed By: #### L 506.1000, L500.4050, L506.0400, L501.9520, L100.0100 #### [facility] [address] [place], [address] RDW SD 45.7 fl High 35.1-43.9 [facility] Comment on above: Performed By: #### L 506.1000, L500.4050, L506.0400, L501.9520, L100.0100 #### [facility] [address] [place], [address] WBC (Bld) [#/Vol] 9.1 10*3/uL Normal 4.4-11.0 [facility] Comment on above: Performed By: #### L 506.1000, L500.4050, L506.0400, L501.9520, L100.0100 #### [facility] [address] [place], [address] Comprehensive Metabolic [facility] 05-24-2024 Albumin [Mass/Vol] 4.2 g/dL Normal 3.2-5.0 [facility] Comment on above: Performed By: #### L 506.1000, L500.4050, L506.0400, L501.9520, L100.0100 #### [facility] [address] [place], [address] Albumin/Globulin [Mass ratio] 1.2 {ratio} Normal 0.9-2.4 [facility] Comment on above: Performed By: #### L 506.1000, L500.4050, L506.0400, L501.9520, L100.0100 #### [facility] [address] [place], [address] ALK P 59 U/L Normal 45-117 [facility] Comment on above: Performed By: #### L 506.1000, L500.4050, L506.0400, L501.9520, L100.0100 #### [facility] [address] [place], [address] ALT [Catalytic activity/Vol] 22 U/L Normal 13-56 [facility] Comment on above: Performed By: #### L 506.1000, L500.4050, L506.0400, L501.9520, L100.0100 #### [facility] [address] [place], [address] AST [Catalytic activity/Vol] 14 U/L Low 15-37 [facility] Comment on above: Performed By: #### L 506.1000, L500.4050, L506.0400, L501.9520, L100.0100 #### [facility] [address] [place], [address] Bilirubin [Mass/Vol] 0.50 mg/dL Normal 0.20-1.00 [facility] Comment on above: Result Comment: For patients on eltrombopag therapy, use of Dimension Odin TBIL is not recommended. Performed By: #### L 506.1000, L500.4050, L506.0400, L501.9520, L100.0100 #### [facility] [address] [place], [address] BUN/CRE 7.7 RATIO Low 10-20 [facility] Comment on above: Performed By: #### L 506.1000, L500.4050, L506.0400, L501.9520, L100.0100 #### [facility] [address] [place], [address] CA,Total 9.3 mg/dL Normal 8.5-10.1 [facility] Comment on above: Performed By: #### L 506.1000, L500.4050, L506.0400, L501.9520, L100.0100 #### [facility] [address] [place], [address] Chloride [Moles/Vol] 107 mmol/L Normal 98-107 [facility] Comment on above: Performed By: #### L 506.1000, L500.4050, L506.0400, L501.9520, L100.0100 #### [facility] [address] [place], [address] CO2 [Moles/Vol] 26.0 mmol/L Normal 21.0-32.0 [facility] [facility] Comment on above: Performed By: #### L 506.1000, L500.4050, L506.0400, L501.9520, L100.0100 #### [facility] [address] [place], [address] Creatinine [Mass/Vol] 0.78 mg/dL Normal 0.55-1.02 [facility] Comment on above: Result Comment: The validity of the calculated GFR GFRAA in patients over 70 years has not been determined. Clinical correlation is essential. Performed By: #### L 506.1000, L500.4050, L506.0400, L501.9520, L100.0100 #### [facility] [address] [place], [address] EST GFR - AA 112 mL/min Normal >60 [facility] Comment on above: Result Comment: Afri can English GFR Calc Performed By: #### L 506.1000, L500.4050, L506.0400, L501.9520, L100.0100 #### [facility] [address] [place], [address] GAP 6 Normal 5-15 [facility] Comment on above: Performed By: #### L 506.1000, L500.4050, L506.0400, L501.9520, L100.0100 #### [facility] [address] [place], [address] GFR/1.73 sq M.predicted among non-blacks MDRD (S/P/Bld) [Vol rate/Area] 93 mL/min/{1.73_m2} Normal >60 [facility] Comment on above: Result Comment: Non- GFR Calc Performed By: #### L 506.1000, L500.4050, L506.0400, L501.9520, L100.0100 #### [facility] [address] [place], [address] Globulin (S) [Mass/Vol] 3.6 g/dL Normal 2.2-4.2 [facility] Comment on above: Performed By: #### L 506.1000, L500.4050, L506.0400, L501.9520, L100.0100 #### [facility] [address] [place], [address] Glucose [Mass/Vol] 86 mg/dL Normal 74-106 [facility] Comment on above: Performed By: #### L 506.1000, L500.4050, L506.0400, L501.9520, L100.0100 #### [facility] [address] [place], [address] Potassium [Moles/Vol] 3.8 mmol/L Normal 3.5-5.1 [facility] Comment on above: Performed By: #### L 506.1000, L500.4050, L506.0400, L501.9520, L100.0100 #### [facility] [address] [place], [address] Sodium [Moles/Vol] 139 mmol/L Normal 136-145 [facility] Comment on above: Performed By: #### L 506.1000, L500.4050, L506.0400, L501.9520, L100.0100 #### [facility] [address] [place], [address] T PROT 7.8 g/dL Normal 6.4-8.2 [facility] Comment on above: Performed By: #### L 506.1000, L500.4050, L506.0400, L501.9520, L100.0100 #### [facility] [address] [place], [address] Urea nitrogen [Mass/Vol] 6 mg/dL Low 7-18 [facility] Comment on above: Performed By: #### L 506.1000, L500.4050, L506.0400, L501.9520, L100.0100 #### [facility] [address] 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 Report [facility] [address], [address] [place] [address] OFFICE VISIT Date of Service: 05/24/24 MR#: [id number] Acct: [id number] Name: HILDA HORNE Rep #: [id number] : 1995 Provider: ASHLEY Ramires Age/Sex: 29/F Location[place] [facility] Status: Signed Intake Vital Signs 03/01/24 13:09 05/24/24 14:16 Height 5 ft 4 in 5 ft 4 in Weight: 147 lb 8 oz BMI 25.3 BP 106/71 Intake Visit Reasons: follow up depo Is patient in pain?: No Feel stressed/tense/nervous/a nxious/difficulty sleeping: not at all Allergies No Known Allergies Allergy (Verified 05/24/24 14:21) Medications ???Medication ???Instructions ???Recorded ???Confirmed ???Type medroxyprogesterone 150 mg/mL 150 mg IM [id number] #1 mL 05/14/24 05/24/24 Rx intramuscular syringe Post menopausal: No Patient : No : No PFSH Medical History PTSD (post-traumatic stress disorder) Depression Anxiety Substance abuse Marijuana use Anemia Gastric reflux Shortness of breath on exertion Smoker ALICIA II (cervical intraepithelial neoplasia II) Hepatitis C Surgical History S/P LEEP ( 04/09/22) No history of previous surgery Social History Smoking Status: Current every day smoker tobacco type: cigarettes alcohol intake: never substance use type: does not use caffeine: Yes what type of physical activity do you participate in: walking frequency: 3-4 times per week seatbelt use: always do you feel safe at home: Yes additional social history: Boyfriend-Rigo [facility] follow up depo Details: HILDA HORNE is a 29 year old who presents for follow up on depo shot. She reports she is doing well. No side effects noted. Would like to continue and is due today for her shot. Female Reproductive History Questions: sexually active: Yes History 2 Elective abortions Hx Para 2 Spontaneous abortions Hx # Term Pregnancies Ectopic pregnancies Hx # Pregnancies Multiple births # of living children 2 Past Pregnancies Del. Date Name GA/Weeks Outcome Route Bth Weight Infant Gen Labor Lgth Anesthesia Del Locatn Provider FOB 09/10/11 [place] 39 live - full term 7lbs 1oz Male 13 hours epidural [facility] Dr. Cyrus Santana 09/26/19 [place] live - full term Male [facility] Dr. Cinthia Bridges Delivery Date: 09/10/11 Last Updated by: Genesis Covarrubias No issues during or delivery. Delivery Date: 09/26/19 Last Updated by: Genesis Covarrubias VAVD, bradycardia ROS Const Constitutional: Denies body ache, chills, fatigue, fever(s) or headache(s) Cardio Card: Denies chest pain at rest, chest pain with activity or palpitations Resp Resp: Denies dyspnea on exertion GI GI: Denies abdominal pain : Reports system reviewed and no additional complaints, except as documented Musc Musc: Reports system reviewed and no additional complaints, except as documented Skin Details: reports sweating; just at axillary. Has tried using mens deoderant and feels this has helped some. Exam Const General: cooperative, healthy appearing, comfortable and no acute distress HENMT Head: normal to inspection Face and sinus: normal facial exam Neck Neck: normal visual inspection and no lymphadenopathy Resp Effort Inspection: normal respiratory effort, able to speak in complete sentences and symmetric chest movement Skin General: no rashes or lesions noted Neuro General: patient alert, patient awake, patient oriented x3 and moves all extremities Psych Appearance: grossly normal Affect: normal affect Speech and Movement: speech and movement normal Attitude: cooperative Thought Process: normal Office Meds Depo-Provera 150 mg/mL intramuscular syringe Performing Provider: ASHLEY Villatoro Performing Location: [facility] Administered by: Stacy Malik on 05/24/24 14:24 Dose Route Admin Location Dispensed Lot Number Expiration Date [facility] Man ufacturer 150 mg IM left gluteal 1 mL [id number] 07/23/25 [address]-6 [employer] Coding Level of Care Code Established Pt Off vis,est,level 3 Patient Type Established Diagnoses Encounter for surveillance of injectable contraceptive Z30.42 Contraceptive encounter type: surveillance Contraceptive type: injectable Sweating Assessment and Plan Assessment and Plan (1) Contraception management: Status: Acute Qualifiers: Contraceptive encounter type: surveillance Contraceptive type: injectable Qualified Code(s): Z30.42 - Encounter for surveillance of injectable contraceptive Comment: depo Plan: (more content not included)... Normal [facility] T4 Free Directon 05-24-2024 T4 FREE DIRECT 1.05 ng/dL Normal 0.76-1.46 [facility] Comment on above: Performed By: #### L 506.1000, L500.4050, L506.0400, L501.9520, L100.0100 #### [facility] [address] [place], [place], [address] Thyroid Stim Hormone (TSH)on 05-24-2024 TSH 1.090 uIU/mL Normal 0.358-3.740 [facility] Comment on above: Performed By: #### L 506.1000, L500.4050, L506.0400, L501.9520, L100.0100 #### [facility] [address] [place], [address] Vitamin D,25 Hydroxyon 05-24 Vitamin D 25-OH 18.6 ng/mL Normal [facility] Comment on above: Result Comment: Sue min D 25(OH) Status Range Deficiency <20 ng/mL (50nmol/L) Insufficiency 20 - 30 ng/mL (50 - 75 nmol/L) Sufficiency 30 - 100 ng/mL (75 - 250 nmol/L) Toxicity >100 ng/mL (>250 nmol/L) Performed By: #### L 506.1000, L500.4050, L506.0400, L501.9520, L100.0100 #### [facility] [address] [place], [address] PAP I-G w/rfx hrHPV-Aptimaon 03-06-2024 ADEQ Comment Normal . [facility] Comment on above: Order Comment: Speci men Comment: [id number] Specimen Comment: Source.............Cervix Specimen Comment: No. of containers..01 ThinPrep Vial Result Comment: Sati sfactory for evaluation. Endocervical and/or squamous metaplastic cells (endocervical component) are present. Performed By: #### L 7400.0353 #### [facility] [address] [place], [address] COMM . Normal . [facility] Comment on above: Order Comment: Speci men Comment: [id number] Specimen Comment: Source.............Cervix Specimen Comment: No. of containers..01 ThinPrep Vial Performed By: #### L 7400.0353 #### [facility] [address] [place], [address] COMMENT Comment Normal . [facility] Comment on above: Order Comment: Speci men Comment: [id number] Specimen Comment: Source.............Cervix Specimen Comment: No. of containers..01 ThinPrep Vial Result Comment: This liquid based ThinPrep(R) pap test was screened with the use of an image guided system. Performed By: #### L 7400.0353 #### [facility] [address] [place], [place], [id number] DIAG Comment Normal . [facility] Comment on above: Order Comment: Speci men Comment: [id number] Specimen Comment: Source.............Cervix Specimen Comment: No. of containers..01 ThinPrep Vial Result Comment: NEGA TIVE FOR INTRAEPITHELIAL LESION OR MALIGNANCY. Performed By: #### L 7400.0353 #### [facility] [address] [place], [place], [id number] HPV RFLX Comment Normal . [facility] Comment on above: Order Comment: Speci men Comment: [id number] Specimen Comment: Source.............Cervix Specimen Comment: No. of containers..01 ThinPrep Vial Result Comment: The HPV DNA reflex criteria were not met with this specimen result therefore, no HPV testing was performed. Performed at: [address] [id number] Pasteurizer: Bridgette Marques MD, Phone: [phone] Performed By: #### L 7400.0353 #### [facility] [address] [place], [place], [address] PAPSMR Comment Normal . [facility] Comment on above: Order Comment: Speci men Comment: [id number] Specimen Comment: Source.............Cervix Specimen Comment: No. of containers..01 ThinPrep Vial Result Comment: The Pap smear is a screening test designed to aid in the detection of premalignant and malignant conditions of the uterine cervix. It is not a diagnostic procedure and should not be used as the sole means of detecting cervical cancer. Both false-positive and false-negative reports do occur. Performed By: #### L 7400.0353 #### [facility] [address] [place], [address] PERFORM Comment Normal . [facility] Comment on above: Order Comment: Speci men Comment: [id number] Specimen Comment: Source.............Cervix Specimen Comment: No. of containers..01 ThinPrep Vial Result Comment: Nicky Mendoza Supervisor Assembly Department (ASCP) Performed By: #### L 7400.0353 #### [facility] [address] 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 [facility] Medical History PTSD (post-traumatic stress disorder) Depression Anxiety Substance abuse Marijuana use Anemia Gastric reflux Shortness of breath on exertion Smoker ALICIA II (cervical intraepithelial neoplasia II) Hepatitis C Surgical History S/P LEEP ( 04/09/22) No history of previous surgery Social History Smoking Status: Current every day smoker tobacco type: cigarettes alcohol intake: never substance use type: does not use caffeine: Yes what type of physical activity do you participate in: walking frequency: 3-4 times per week seatbelt use: always do you feel safe at home: Yes additional social history: Boyfriend-Rigo History 2 Elective abortions Hx Para 2 Spontaneous abortions Hx # Term Pregnancies Ectopic pregnancies Hx # Pregnancies Multiple births # of living children 2 Past Pregnancies Del. Date Name GA/Weeks Outcome Route Bth Weight Infant Gen Labor Lgth Anesthesia Del Locatn Provider FOB 09/10/11 [facility] 39 live - full term 7lbs 1oz Male 13 hours epidural [facility] Dr. Cyrus Santana 09/26/19 [place] live - full term Male [facility] Dr. Cinthia Bridges Delivery Date: 09/10/11 Last Updated by: Genesis Covarrubias No issues during or delivery. 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 Very happy with depo for contraception. Denies concerns and no new sexual partner Last PAP: ASCUS, neg HPV History of abnormal PAP: LEEP H/O ALICIA 3 Last mammogram: age 39 Female Reproductive History Questions: metorrhagia: No, sexually active: Yes, dyspareunia: No and PCB: No ROS Const Constitutional: Denies fatigue, weight gain or weight loss Cardio Card: Denies chest pain Resp Resp: Denies cough or dyspnea on exertion GI GI: Denies abdominal pain, bloating, change in stool character, constipation or vomiting : Reports as per HPI; Denies difficulty voiding, pelvic pain, urinary frequency, urinary incontinence, urinary urgency, vaginal discharge or vaginal pruritus Exam Const General: cooperative, healthy appearing, no acute distress and well developed Orientation: alert, oriented to person and oriented to place HENWA Head: normal to inspection Neck Neck: normal visual inspection Thyroid: thyroid normal Lymphatic: no lymphadenopathy noted Chest Breast inspection: normal inspection of the breasts and normal inspection of the axillae Breast palpation: normal palpation of the breasts, normal palpation of the axillae and no axillary lymphadenopathy Resp Effort Inspection: normal respiratory effort GI Palpation: soft, no masses and nontender Rectal Exam: deferred External Female Exam: normal external appearance and normal appearance of the urethra Urethra: normal appearance of the urethra and normal palpation Speculum Exam - Vagina: normal appearance of the vagina and normal vaginal discharge Speculum Exam - Cervix: normal appearance of the cervix Bimanual Exam- Vagina Uterus: normal bimanual exam, uterine size normal, uterine shape normal and non-tender Bimanual Exam- Adnexa, other: normal adnexae, no masses, normal and non-tender Pelvic Support: normal Neuro General: patient alert and patient oriented x3 Psych Affect: normal affect Office Meds Depo-Provera 150 mg/mL intramuscular syringe Performing Provider: Stacy Eugene NP, PAVANC Performing Location: [facility] Administered (more content not included)... [facility] ) -------- HILDA HORNE ([id number]) 1995 F Date Time Provider Department 09/18/22 8:45 AM [facility] During your visit today, we recorded the following information about you: Temperature Pulse Respiration Blood pressure 98.1 degrees 80/minute 21/minute 116/74 Weight 61.8 kg Michele Duran MD 09/18/2022 9:33 AM Signed Patient presents with: Sinus Problem: Congestion, cough x 1 month HPI: Feeling lingering cough and congestion for 1 month. Was feeling better but worsened again this morning. Her son is sick since last night also. Positive symptoms: Cough, Sore throat, improved Sinus pressure, Nasal Congestion, Rhinorrhea, Headache, improved Chest tightness, Negative symptoms: Fever, Vomiting, Diarrhea, OTC: Mucinex She smokes; coughs tend to linger for her. No diagnosed history of asthma but thinks she had some issues with lingering coughs as a child. PAST MEDICAL HISTORY Diagnosis Date Anxiety Hepatitis C MEDICATIONS: Current Outpatient Medications Medication Sig medroxyPROGESTERone (DEPO-PROVERA) 150 mg/mL syrg Inject 1 mL intramuscularly every 12 weeks. fluticasone (FLONASE) 50 mcg/actuation nasal spray Use 2 Sprays in each nostril once daily. Rinse mouth after use. (Patient not taking: Reported on 09/18/2022) No current facility-administered medications for this visit. ALLERGIES: ALLERGIES No Known Allergies VITALS: BP 116/74 Pulse 80 Temp 36.7 ?C (98.1 ?F) Resp 21 Wt 61.8 kg (136 lb 3.2 oz) LMP 08/28/2012 SpO2 98% BMI 23.38 kg/m? PHYSICAL EXAM: GEN: mildly ill appearing, alert, pleasant HEENT: PERRL, EOMI, conjunctiva clear Ears: canals clear. TMs without erythema, bulge, or effusion Sinuses: non-tender frontal sinus, non-tender maxillary sinuses Throat: moist mucous membranes, mild erythema, no exudate Neck: supple, no thyromegaly, no lymphadenopathy HEART: regular rate and rhythm, no murmurs LUNGS: clear to auscultation, no wheezes or crackles, no increased WOB ASSESSMENT/PLAN: 1. URI, acute - ICD9: 465.9, ICD10: J06.9 (primary diagnosis) - suspect viral URI - Discussed supportive care treatment. 2. History of smoking - ICD9: V15.82, ICD10: Z87.891 - PREDNISONE 10 MG TABLET taper No prior used of steroid for cough/wheezing. Potential steroid side effects discussed including increased energy, sleep disturbance, mood change. Michele Duran MD Allergies As of Date: 09/18/2022 (No Known Allergies) Date Reviewed: 09/18/2022 Reviewed by: Alondra Aleman MA - Fully Assessed Reason for Visit: Sinus Problem [99] Cmt: Congestion, cough x 1 month Primary Visit Diagnosis:URI, acute [J06.9] Other Visit Diagnosis:History of smoking [Z87.891] Order(s):predniSONE (DELTASONE) 10 mg tabletTake 5 tablets by mouth once daily for 1 day, THEN 4 tablets once daily for 1 day, THEN 3 tablets once daily for 1 day, THEN 2 tablets once daily for 1 day, THEN 1 tablet once daily for 1 day.Disp: 15 tabletRfl: 0 Prescriptions as of 09/18/2022 - predniSONE (DELTASONE) 10 mg tablet Take 5 tablets by mouth once daily for 1 day, THEN 4 tablets once daily for 1 day, THEN 3 tablets once daily for 1 day, THEN 2 tablets once daily for 1 day, THEN 1 tablet once daily for 1 day. - fluticasone (FLONASE) 50 mcg/actuation nasal spray Use 2 Sprays in each nostril once daily. Rinse mouth after use. - medroxyPROGESTERone (DEPO-PROVERA) 150 mg/mL syrg Inject 1 mL intramuscularly every 12 weeks. Problem List As Of Date 09/18/2022 Noted Resolved Supervision of normal first [Z34.00] 08/16/2011 11/19/2011 depression [F53.0] 12/19/2011 09/01/2015 Contraceptive management [Z30.9] 01/20/2014 Prescriptions ordered this encounter Disp Refills Start End PREDNISONE 10 MG TABLET 15 t* 0 09/18/2022 09/23/2022 Route: ORAL Sig: Take 5 tablets by mouth once daily for 1 day, THEN 4 tablets once daily for 1 day, THEN 3 tablets once daily for 1 day, THEN 2 tablets once daily for 1 day, THEN 1 tablet once daily for 1 day. Medications Discontinued During This Encounter Prescriptions - traZODone (DESYREL) 50 mg tablet (Discontinued) Take 1 tablet by mouth daily at bedtime. - buPROPion XL (WELLBUTRIN XL) 150 mg 24 hr tablet (Discontinued) Take 1 tablet by mouth once daily. - phenazopyridine (PYRIDIUM) 100 mg tablet (Discontinued) Take 1 tablet by mouth three times daily as needed for Pain. Encounter Status:Closed by MICHELE DURAN on 09/18/22 Normal [facility] CNOVon 01-24-2022 CNOV Office Visit ([facility] ) -------- HORNEHILDA Alexander ([id number]) 1995 F Date Time Provider Department 01/24/22 2:45 PM SANTANA OSUNAKAITLYN During your visit today, we recorded the following information about you: Temperature Pulse Respiration Blood pressure 99.3 degrees 80/minute 18/minute 110/78 Weight 55.1 kg Santana Osuna APRN.CNP 01/24/2022 3:08 PM Signed Subjective HPI HPI Hilda Munoz Ozzie is a 26 year old female who presents today for CC of cough, sinus pain/congestion, right ear pain. This started over 1 week ago/worsening. Has tried otc medication for relief. Symptoms are worsened by nothing. Risk factors smoker. Sick exposures at home. No covid test performed. Denies possibility of being . .Patient presents with: Ear Pain: Right ear pain, cough, congestion and sinus x 1 week PAST MEDICAL HISTORY Diagnosis Date NEGATIVE MEDICAL HISTORY PAST SURGICAL HISTORY Procedure Laterality Date NONE ALLERGIES Patient has no known allergies. MEDICATIONS amoxicillin-clavulanic acid (AUGMENTIN) 875-125 mg per tablet Take 1 tablet by mouth twice daily for 7 days. fluticasone (FLONASE) 50 mcg/actuation nasal spray Use 2 Sprays in each nostril once daily. Rinse mouth after use. medroxyPROGESTERone (DEPO-PROVERA) 150 mg/mL syrg Inject 1 mL intramuscularly every 12 weeks. traZODone (DESYREL) 50 mg tablet Take 1 tablet by mouth daily at bedtime. buPROPion XL (WELLBUTRIN XL) 150 mg 24 hr tablet Take 1 tablet by mouth once daily. phenazopyridine (PYRIDIUM) 100 mg tablet Take 1 tablet by mouth three times daily as needed for Pain. FAMILY HISTORY Problem Relation Age of Onset Cancer Maternal Grandmother UTERINE CANCER/BONE CANCER Heart Father Thyroid Maternal Aunt Thyroid Maternal Uncle Aneurysm Maternal Grandmother AORTIC ANEURYSM Social History Tobacco Use Smoking status: Every Day Packs/day: 0.30 Years: 4.00 Pack years: 1.20 Types: Cigarettes Last attempt to quit: 04/25/2011 Years since quittin.7 Smokeless tobacco: Never Tobacco comments: 5 cigarettes per day Substance Use Topics Alcohol use: No Drug use: No ROS Objective Blood pressure 110/78, pulse 80, temperature 37.4 ?C (99.3 ?F), temperature source Tympanic, resp. rate 18, weight 55.1 kg (121 lb 6.4 oz), last menstrual period 08/28/2012, SpO2 98 %. Physical Exam Constitutional: General: She is not in acute distress. Appearance: She is not toxic-appearing or diaphoretic. HENT: Head: Normocephalic and atraumatic. Right Ear: Hearing, ear canal and external ear normal. Tympanic membrane is erythematous and bulging. Tympanic membrane is not perforated. Left Ear: Hearing, tympanic membrane, ear canal and external ear normal. Mouth/Throat: Pharynx: Uvula midline. Eyes: General: Lids are normal. No scleral icterus. Right eye: No discharge. Left eye: No discharge. Conjunctiva/sclera: Conjunctivae normal. Pupils: Pupils are equal, round, and reactive to light. Neck: Trachea: Trachea normal. Cardiovascular: Rate and Rhythm: Normal rate and regular rhythm. Heart sounds: Normal heart sounds. Pulmonary: Effort: Pulmonary effort is normal. Breath sounds: Normal breath sounds. Musculoskeletal: Cervical back: Normal range of motion and neck supple. Lymphadenopathy: Cervical: No cervical adenopathy. Skin: Findings: No rash. Neurological: Mental Status: She is alert and oriented to person, place, and time. ASSESSMENT/PLAN: 1. Sinobronchitis - ICD9: 473.9, 490, ICD10: J32.9, J40 (primary diagnosis) - Will begin treatment with as per antibiotic as written, see orders - Supportive care with plenty of fluids, rest, and analgesia prn. - Follow up in one week if symptoms persist or worsen. - AMOXICILLIN 875 MG-POTASSIUM CLAVULANATE 125 MG TABLET - FLUTICASONE PROPIONATE 50 MCG/ACTUATION NASAL SPRAY,SUSPENSION 2. Acute otitis media, right - ICD9: 382.9, ICD10: H66.91 - Will begin treatment with Augmentin 875 mg PO BID - Supportive care with plenty of fluids, rest, and analgesia prn. - Follow up in one week if symptoms persist or worsen. - AMOXICILLIN 875 MG-POTASSIUM CLAVULANATE 125 MG TABLET - FLUTICASONE PROPIONATE 50 MCG/ACTUATION NASAL SPRAY,SUSPENSION Agrees to plan Santana Osuna APRN.BOOKMAKER'S CLERK Referring Provider: SELF [200] Allergies As of Date: 01/24/2022 (No Known Allergies) Date Reviewed: 01/24/2022 Reviewed by: Santana Osuna APRN.BOOKMAKER'S CLERK - Fully Assessed Reason for Visit: Ear Pain [817] Cmt: Right ear pain, cough, congestion and sinus x 1 week Primary Visit Diagnosis:Sinobronchitis [J32.9, J40] Other Visit Diagnosis:Acute otitis media, right [H66.91] Order(s):amoxicillin-cla vulanic acid (AUGMENTIN) 875-125 mg per tabletTake 1 tablet by mouth twice daily for 7 days.Disp: 14 tabletRfl: 0 fluticasone (FLONASE) 50 mcg/actuation nasal sprayUse 2 Sprays in each nos (more content not included)... Normal [facility] Absolute lymphocyte counton 01-14-2022 Lymphocytes Auto (Unsp spec) [#/Vol] 3.61 10*3/uL 0.83-4.51 [facility] Work Phone: Basophil percentageon 2021 Basophil percentage TNP [facility] Work Phone: Comment on above: Test not performed Basophils/100 WBC (Bld) 0.2 % 0-1 [facility] Work Phone: Bilirubin [Mass/Vol] 0.30 mg/dL 0.20-1.00 [facility] Work Phone: Comment on above: For patients on eltr ombopag therapy, use of Dimension Odin TBIL is not recommended. Chloride [Moles/Vol] 106 mmol/L 98-107 [facility] Work Phone: [phone] Eosinophils/100 WBC (Bld) 2.3 % 0-5 [facility] Work Phone: Glucose [Mass/Vol] 85 mg/dL 74-106 [facility] Work Phone: Neutrophils (Bld) [#/Vol] 5.2 10*3/uL 2.0-7.7 [facility] Work Phone: Neutrophils/100 WBC (Bld) 52.1 % 47-70 [facility] Work Phone: Potassium [Moles/Vol] 3.8 mmol/L 3.5-5.1 [facility] Work Phone: [phone] Protein [Mass/Vol] 7.8 g/dL 6.4-8.2 [facility] Work Phone: Sodium [Moles/Vol] 139 mmol/L 136-145 [facility] Work Phone: WBC (Bld) [#/Vol] 9.9 10*3/uL 4.4-11.0 [facility] Work Phone: [phone] Blood erythrocytes count (nu mber/volume)on 01-14-2022 RBC (Bld) [#/Vol] 4.29 10*6/uL 4.2-5.4 [facility] Work Phone: Blood hemoglobin measurement (mass/volume)on 01-14-2022 Hemoglobin (Bld) [Mass/Vol] 13.9 g/dL 12.0-15.0 [facility] Work Phone: Blood lymphocytes/100 leukoc yteson 01-14-2022 Lymphocytes/100 WBC (Bld) 36.5 % 19-41 [facility] Work Phone: Blood monocytes/100 leukocyt eson 01-14-2022 Monocytes/100 WBC (Bld) 8.7 % 0-10 [facility] Work Phone: Blood platelet mean volumeon 01-14-2022 Platelet mean volume (Bld) [Entitic vol] 10.9 fL 6.2-12.0 [facility] Work Phone: Cervical or vagninal specime n microscopic examination by cytology stain (reported ason 01-14-2022 Cytology report Cyto stain Doc (Cvx/Vag) Comment . [facility] Work Phone: Comment on above: The Pap smear is a s creening test designed to aid in thedetection of premalignant and malignant conditions of theuterine cervix. It is not a diagnostic procedure andshould not be used as the sole means of detecting cervicalcancer. Both false-positive and false-negative reports dooccur. Determination of erythrocyte mean corpuscular volume (MCV)on 01-14-2022 MCV (RBC) [Entitic vol] 95.3 fL 81-99 [facility] Work Phone: Hematocrit Auto (Bld) [Volum e fraction]on 01-14-2022 Hematocrit (Bld) [Volume fraction] 40.9 % 37-47 [facility] Work Phone: Laboratory - Chemistry and C hemistry - challengeon 01-14-2022 ALP [Catalytic activity/Vol] 45 U/L 45-117 [facility] Work Phone: ALT [Catalytic activity/Vol] 21 U/L 13-56 [facility] Work Phone: CO2 [Moles/Vol] 29.0 mmol/L 21.0-32.0 [facility] Work Phone: Globulin (S) [Mass/Vol] 3.7 g/dL 2.2-4.2 [facility] Work Phone: Urea nitrogen/Creatinine [Mass ratio] 8.6 mg/mg 10-20 [facility] Work Phone: HCG ( test) Ql (U) Negative [facility] Work Phone: Laboratory - Cytologyon 12-25 [employer] Cyto stain Nom (Cvx/Vag) [ID] Comment . [facility] Work Phone: Comment on above: Noah Newsome, Supervisor Assembly Department (ASCP) Pathologist Cyto stain Nom (Cvx/Vag) [ID] Comment . [facility] Work Phone: Comment on above: Liss Jasso MD, P athologist Laboratory - Hematology and Cell countson 01-14-2022 Erythrocyte distribution width (RBC) [Entitic vol] 43.1 fL 35.1-43.9 [facility] Work Phone: Erythrocyte distribution width (RBC) [Ratio] 12.4 % 11.6-14.6 [facility] Work Phone: Immature granulocytes/100 WBC (Bld) 0.200 % 0.0-0.9 [facility] Work Phone: Comment on above: IG% - Immature Granu locytes (promyelocytes, myelocytes and metamyelocytes) > 1% indicates that a LEFT SHIFT is Present. MCH (RBC) [Entitic mass] 32.4 pg 27.0-32.0 [facility] Work Phone: Nucleated RBC/100 WBC (Bld) [Ratio] 0 % 0-5 [facility] Work Phone: Laboratory - Miscellaneous t estson 01-14-2022 Service comment (Unsp spec) [Interp] Comment . [facility] Work Phone: Comment on above: This liquid based Th inPrep(R) pap test was screened withthe use of an image guided system. Service comment (Unsp spec) [Interp] . . [facility] Work Phone: MCHC Auto (RBC) [Mass/Vol]on 01-14-2022 MCHC (RBC) [Mass/Vol] 34.0 g/dL 32-36 [facility] Work Phone: No Panel Informationon 01-14 Human Papillomavirus Screen Comment . [facility] Work Phone: Comment on above: The HPV DNA reflex c torito were not met with this specimenresult therefore, no HPV testing was performed.Performed at: [facility] [id number] Director: Bridgette Marques MD, Phone: [phone] Pathology report final diagnosis Narrative Comment . [facility] Work Phone: Comment on above: EPITHELIAL CELL ABNO RMALITY.LOW GRADE SQUAMOUS INTRAEPITHELIAL LESION (LSIL). R87.612 Addendum Document Comment . [facility] Work Phone: Comment on above: The quantitative ran ge of this assay is 15 IU/mL to 100million IU/mL.Performed at: [facility] [id number] Director: Robb Thayer MD, Phone: [phone] Estimated GFR (MDRD) Amer 108 mL/min >60 [facility] Work Phone: Comment on above: GFR Calc Estimated GFR (MDRD) Non-Af Amer 89 mL/min >60 [facility] Work Phone: Comment on above: Non- GFR Calc Platelets bldon 01-14-2022 Platelets (Bld) [#/Vol] 289 10*3/uL 150-450 [facility] Work Phone: Serum or plasma albumin alexandre urement (mass/volume)on 01-14-2022 Albumin [Mass/Vol] 4.1 g/dL 3.2-5.0 [facility] Work Phone: Serum or plasma albumin/glob ulin mass ratioon 01-14-2022 Albumin/Globulin [Mass ratio] 1.1 {ratio} 0.9-2.4 [facility] Work Phone: Serum or plasma calcium alexandre urement (mass/volume)on 01-14-2022 Calcium [Mass/Vol] 9.3 mg/dL 8.5-10.1 [facility] Work Phone: Serum or plasma creatinine m easurement (mass/volume)on 01-14-2022 Creatinine [Mass/Vol] 0.81 mg/dL 0.55-1.02 [facility] Work Phone: Comment on above: The validity of the calculated GFR & GFRAA in patients over 70 years has not been determined. Clinical correlation is essential. Serum or plasma hepatitis C virus RNA measurement by probe and target amplification mon 01-14-2022 HCV RNA LARISSA+probe Qn Not detected . [facility] Work Phone: Serum or plasma urea nitroge n measurement (mass/volume)on 01-14-2022 Urea nitrogen [Mass/Vol] 7 mg/dL 7-18 [facility] Work Phone: Thin prep Papanicolaou smear with manual screeningon 01-14-2022 Thin prep Papanicolaou smear with manual screening 15 U/L 15-37 [facility] Work Phone: Thin prep Papanicolaou smear with manual screening 4 5-15 [facility] Work Phone: Vital Signs Date Time Vital Sign Value Performing Clinician Rema sesay 02-22-2025 14:50-0400 Body height 162.[address] Cinthia Bridges MD Work Phone: [facility] 02-22-2025 14:50-0400 Body mass index (BMI) [Ratio] 23.3 kg/m2 Dr. Cinthia Bridges MD Work Phone: [facility] 02-22-2025 14:50-0400 Body weight 61.[address] Cinthia Bridges MD Work Phone: [facility] 11-19-2024 14:21-0400 Body mass index (BMI) [Ratio] 23.6 kg/m2 Dr. Cinthia Bridges MD Work Phone: [facility] 11-19-2024 14:21-0400 Body weight 62.[address] Cinthia Bridges MD Work Phone: [facility] 11-19-2024 14:21-0400 Diastolic blood pressure 79 mm[Hg] Dr. Cinthia Bridges MD Work Phone: [facility] 11-19-2024 14:21-0400 Systolic blood pressure 124 mm[Hg] Dr. Cinthia Bridges MD Work Phone: [facility] 08-20-2024 14:32-0400 Body height 162.56 cm Susanna Parr PAGINATOR-C Work Phone: [facility] 08-20-2024 14:32-0400 Body mass index (BMI) [Ratio] 25 kg/m2 Susanna Parr PAGINATOR-C Work Phone: [facility] 08-20-2024 14:32-0400 Body weight 66.22 kg Susanna Parr PAGINATOR-C Work Phone: [facility] 08-20-2024 14:32-0400 Diastolic blood pressure 71 mm[Hg] Susanna Parr PAGINATOR-C Work Phone: [facility] 08-20-2024 14:32-0400 Systolic blood pressure 116 mm[Hg] Susanna Parr PAGINATOR-C Work Phone: [facility] 03-17-2023 14:07-0400 Body height 162.56 cm No Primary Care Physician [facility] 03-17-2023 13:57-0400 Body mass index (BMI) [Ratio] 23.2 kg/m2 No Primary Care Physician [facility] 03-17-2023 13:57-0400 Body weight 61.34 kg No Primary Care Physician [facility] 03-17-2023 13:57-0400 Diastolic blood pressure 72 mm[Hg] No Primary Care Physician [facility] 03-17-2023 13:57-0400 Systolic blood pressure 112 mm[Hg] No Primary Care Physician [facility] 12-23-2022 14:01-0400 Body mass index (BMI) [Ratio] 22.6 kg/m2 No Primary Care Physician [facility] 12-23-2022 14:01-0400 Body weight 59.87 kg No Primary Care Physician [facility] 09-18-2022 08:54-0400 Body temperature 98.1 [degF] Michele Duran MD Work Phone: [facility] 09-18-2022 08:54-0400 Body weight 61.78 kg Michele Duran MD Work Phone: [facility] 09-18-2022 08:54-0400 Diastolic blood pressure 74 mm[Hg] Michele Duran MD Work Phone: [facility] 09-18-2022 08:54-0400 Heart rate 80 /min Michele Duran MD Work Phone: [facility] 09-18-2022 08:54-0400 Respiratory rate 21 /min Michele Duran MD Work Phone: [facility] 09-18-2022 08:54-0400 SaO2% (BldA) [Mass fraction] 98 % Michele Duran MD Work Phone: [facility] 09-18-2022 08:54-0400 Systolic blood pressure 116 mm[Hg] Michele Duran MD Work Phone: [facility] 02-14-2022 13:30-0400 Body height 162.56 cm No Primary Care Physician [facility] Work Phone: 02-14-2022 13:30-0400 Body mass index (BMI) [Ratio] 21.8 kg/m2 No Primary Care Physician [facility] Work Phone: 02-14-2022 13:30-0400 Body weight 57.71 kg No Primary Care Physician [facility] Work Phone: 02-14-2022 13:30-0400 Diastolic blood pressure 73 mm[Hg] No Primary Care Physician [facility] Work Phone: 02-14-2022 13:30-0400 Systolic blood pressure 126 mm[Hg] No Primary Care Physician [facility] Work Phone: 01-24-2022 14:42-0400 Body temperature 99.3 [degF] Santana Osuna LEATHER TOOLER.BOOKMAKER'S CLERK Work Phone: [facility] 01-24-2022 14:42-0400 Body weight 55.07 kg Santana Osuna LEATHER TOOLER.BOOKMAKER'S CLERK Work Phone: [facility] 01-24-2022 14:42-0400 Diastolic blood pressure 78 mm[Hg] Santana Osuna LEATHER TOOLER.BOOKMAKER'S CLERK Work Phone: [facility] 01-24-2022 14:42-0400 Heart rate 80 /min Santana Osuna LEATHER TOOLER.BOOKMAKER'S CLERK Work Phone: [facility] 01-24-2022 14:42-0400 Respiratory rate 18 /min Santana Osuna LEATHER TOOLER.BOOKMAKER'S CLERK Work Phone: [facility] 01-24-2022 14:42-0400 SaO2% (BldA) [Mass fraction] 98 % Santana Osuna LEATHER TOOLER.BOOKMAKER'S CLERK Work Phone: [facility] 01-24-2022 14:42-0400 Systolic blood pressure 110 mm[Hg] Santana Osuna LEATHER TOOLER.BOOKMAKER'S CLERK Work Phone: [facility] 01-14-2022 15:49-0400 Body mass index (BMI) [Ratio] 21.2 kg/m2 No Primary Care Physician [facility] Work Phone: 01-14-2022 15:49-0400 Body weight 56.24 kg No Primary Care Physician [facility] Work Phone: 01-14-2022 15:49-0400 Diastolic blood pressure 82 mm[Hg] No Primary Care Physician [facility] Work Phone: 01-14-2022 15:49-0400 Systolic blood pressure 120 mm[Hg] No Primary Care Physician [facility] Work Phone: Encounters Encounter Date Encounter Type Care Provider Facility Start: 02-22-2025 End: 02-22-2025 Patient encounter procedure Stacy RAMIREZ -[facility] Work Phone: Start: 02-22-2025 End: 02-22-2025 ambulatory Stacy Eugene PAGINATOR Facility:[facility] Start: 11-19-2024 End: 11-19-[address] Cinthia Bridges MD -[facility] Work Phone: Start: 11-19-2024 End: 11-19-2024 ambulatory Cinthia Bridges -[facility] Start: 08-20-2024 End: 08-20-2024 Patient encounter procedure Susanna Parr PAGINATOR-C -[facility] Work Phone: Start: 08-20-2024 End: 08-20-2024 ambulatory Susanna Parr Facility:[facility] Start: 05-24-2024 End: 05-24-2024 ambulatory Susanna Parr Facility:[facility] Start: 05-24-2024 End: 05-24-2024 ambulatory Susanna Parr Facility:[facility] Start: 03-01-2024 End: 03-01-2024 ambulatory Stacy Heberts PAGINATOR Facility:[facility] Start: 03-01-2024 End: 03-01-2024 ambulatory Stacy Heberts PAGINATOR Facility:[facility] Start: 03-17-2023 End: 03-17-2023 ambulatory No Primary Care Physician [facility] Work Phone: Start: 03-17-2023 End: 03-17-2023 Patient encounter procedure No Primary Care Physician [facility] Specimen Work Phone: Start: 03-17-2023 End: 03-17-2023 Patient encounter procedure No Primary Care Physician [facility] Work Phone: Start: 12-23-2022 End: 12-23-2022 Patient encounter procedure No Primary Care Physician [facility] Work Phone: Start: 09-18-2022 End: 09-18-2022 ambulatory SANTANA OSUNA Facility:[facility] Start: 09-18-2022 End: 09-18-2022 Patient encounter procedure Michele Duran MD Work Phone: [facility] Comment on above: URI, acute (Primary Dx); History of smoking Start: 02-14-2022 End: 02-14-2022 ambulatory No Primary Care Physician [facility] Work Phone: Start: 02-14-2022 End: 02-14-2022 Patient encounter procedure No Primary Care Physician [facility] Spec[facility] Start: 02-14-2022 End: 02-14-2022 Patient encounter procedure No Primary Care Physician [facility] Start: 01-24-2022 End: 01-25-2022 ambulatory [facility] Facility:[facility] Start: 01-24-2022 End: 01-24-2022 Patient encounter procedure Santana Osuna LEATHER TOOLERRosalindBOOKMAKER'S CLERK Work Phone: [facility] Comment on above: Sinobronchitis (Prim edilberto Dx); Acute otitis media, right Start: 01-14-2022 End: 01-14-2022 Patient encounter procedure No Primary Care Physician [facility] Plan of Treatment Date Care Activity Detail Author Start: 03-17-2023 Liquid based cervical cytology screening [facility] Start: 01-24-2023 Influenza vaccination INFLUENZA (Season Ended) [facility] Start: 05-26-2022 DEPRESSION ASSESSMENT DEPRESSION ASSESSMENT [facility] Start: 01-24-2022 Influenza vaccination INFLUENZA (#1) [facility] Start: 08-31-2018 PAP TESTING PAP TESTING [facility] Start: 2013 Urine microalbumin profile DTAP,TDAP,TD (1 - Tdap) [facility] Start: 2012 HEPATITIS C SCREENING HEPATITIS C SCREENING [facility] Start: 2012 HIV SCREENING HIV SCREENING [facility] Start: 2006 Adult depression screening assessment DEPRESSION SCREENING [facility] Start: 2000 PNEUMOCOCCAL (1 - PCV) PNEUMOCOCCAL (1 - PCV) [facility] Start: 1994 COVID-19 VACCINE (#1) COVID-19 VACCINE (#1) [facility] Start: 1994 HEPATITIS B (1 of 3 - 3-dose series) HEPATITIS B (1 of 3 - 3-dose series) [facility] Injection of medroxyprogesterone acetate [facility] Path report.final Dx Spec [facility] Immunizations Immunization Date Immunization Notes Care Provider Fa rodrick 06-25-2019 Influenza virus vaccine No P [place] Care Physician [facility] 06-25-2019 tetanus toxoid, redu vicky diphtheria toxoid, and acellular pertussis vaccine, adsorbed No Primary Care Physician [facility] 05-28-2011 influenza virus vaccine, unspecified formulation Santana Osuna APRN.BOOKMAKER'S CLERK Work Phone: [facility] Work Phone: Payers Date Payer Category Payer Self-pay [id number] 2018 Medicaid [id number] 2014 Medicaid [id number] 2014 Unknown [id number] Unknown [id number] 2.16.8 [id number] Unknown [id number] 2.16.8 [id number] Unknown [id number] 2.16.8 [id number] Unknown [id number] 2.16.8 [id number] Unknown [id number] 2.16.8 [id number] Unknown [id number] 2.16.8 [id number] Unknown [id number] 2.16.8 [id number] Social History Date Type Detail Facility Start: 01-24-2022 End: 09-01-2023 Tobacco smoking status NVIS Smokes tobacco daily [facility] End: 04-25-2011 History of tobacco use Cigarette Smoker [facility] Start: 01-24-2022 Cigarettes smoked current (pack per day) - Reported 0.3 [facility] Start: 01-24-2022 Tobacco use and exposure Smokeless tobacco non-user [facility] Start: 01-24-2022 End: 09-18-2022 Alcohol intake Current non-drinker of alcohol (finding) [facility] Start: 01-24-2022 Tobacco Comment [address] [facility] Start: 1995 Sex Assigned At Not on file [facility] Start: 01-14-2022 End: 01-24-2022 Exposure to SARS-CoV-2 (event) Not sure [facility] Work Phone: Start: 01-14-2022 End: 03-17-2023 Tobacco smoking status NHIS Unknown if ever smoked [facility] Start: 1995 Sex Assigned At Female [facility] Sex Female [facility] Clinical Notes 12-19-2011 to 02-22-2025 Note Date & Type Note Facility 02-22-2025 Progress note [facility] 02-22-2025 Progress note Note Date/Time February 22, 2025 3:37pm [facility] [address] [place] [address] OFFICE VISIT Date of Service: 02/22/25 MR#: [id number] Acct: [id number] Patient: HILDA HORNE Rep #: [id number] : 1995 Provider: ASHLEY Eugene Age/Sex: 29/F Location: [facility] Status: Signed Intake Vital Signs 11/19/24 14:21 02/22/25 14:50 Height 5 ft 4 in 5 ft 4 in Weight: 138 lb 136 lb 3 oz BMI 23.6 23.3 BP 124/79 H Intake Visit Reasons: DEPO *ok per triage Chief Complaint: Depo Cafeteria Server Required: No Is patient in pain?: No Allergies No Known Allergies Allergy (Verified 02/22/25 14:50) Medications ?Medication ?Instructions ?Recorded ?Confirmed ?Type medroxyprogesterone 150 mg/mL 150 mg IM [id number] #1 mL 05/14/24 02/22/25 Rx intramuscular syringe Post menopausal: No Patient : No Have you fallen in the past year?: No Office Meds Depo-Provera 150 mg/mL intramuscular syringe Performing Provider: Stacy Eugene NP, PAGINATOR-C Performing Location: [facility] Administered by: Genesis Covarrubias on 02/22/25 14:53 Dose Route Admin Location Dispensed Lot Number Expiration Date Pack age NDC NDC Dice Table Operator 150 mg IM right gluteus 1 mL [id number] 10/23/25 [id number] [facility] Assessment and Plan Assessment and Plan (1) Contraception management: Status: Acute Qualifiers: Contraceptive encounter type: surveillance Contraceptive type: injectable Qualified Code(s): Z30.42 - Encounter for surveillance of injectablecontraceptive Comment: depo Orders: Orders Depo-Provera Injection - Home Med Today Z30.42 - Encounter for surveillance of injectable contraceptive Clinical Quality Measures Falls Risk Screening/Assistive Devices Have you fallen in the past year?: No 02/22/25 1537 <Electronically signed by Stacy rodriguez PAGINATOR PAGINATOR-C> Date _ Stacy Eugene NP PAGINATOR-C Cosigner Signature: Date (if applicable) CC: ~ [facility] Work Phone: 1(100) 205-421106-27-2025 Evaluation note* Diagnosis Onset Date Resolution Status Admit Date Contraception management acute November 19, 2024 2:09pm Contraception management acute February 22, 2025 1:59pm [facility] Work Phone: [phone]) 373-220904-26-2023 NoteHNO ID: [id number] Author: Michele Duran MD Service: ? Author Type: Physician Type: Progress Notes Filed: 09/18/2022 9:33 AM Note Text: Patient presents with: Sinus Problem: Congestion, cough x 1 month HPI: Feeling lingering cough and congestion for 1 month. Was feeling better but worsened again this morning. Her son is sick since last night also. Positive symptoms: Cough, Sore throat, improved Sinus pressure, Nasal Congestion, Rhinorrhea, Headache, improved Chest tightness, Negative symptoms: Fever, Vomiting, Diarrhea, OTC: Mucinex She smokes; coughs tend to linger for her. No diagnosed history of asthma but thinks she had some issues with lingering coughs as a child. PAST MEDICAL HISTORY Diagnosis Date Anxiety Hepatitis C MEDICATIONS: Current Outpatient Medications Medication Sig medroxyPROGESTERone (DEPO-PROVERA) 150 mg/mL syrg Inject 1 mL intramuscularly every 12 weeks. fluticasone (FLONASE) 50 mcg/actuation nasal spray Use 2 Sprays in each nostril once daily. Rinse mouth after use. (Patient not taking: Reported on 09/18/2022) No current facility-administered medications for this visit. ALLERGIES: ALLERGIES No Known Allergies VITALS: BP 116/74 Pulse 80 Temp 36.7 ?C (98.1 ?F) Resp 21 Wt 61.8 kg (136 lb 3.2 oz) LMP 08/28/2012 SpO2 98% BMI 23.38 kg/m? PHYSICAL EXAM: GEN: mildly ill appearing, alert, pleasant HEENT: PERRL, EOMI, conjunctiva clear Ears: canals clear. TMs without erythema, bulge, or effusion Sinuses: non-tender frontal sinus, non-tender maxillary sinuses Throat: moist mucous membranes, mild erythema, no exudate Neck: supple, no thyromegaly, no lymphadenopathy HEART: regular rate and rhythm, no murmurs LUNGS: clear to auscultation, no wheezes or crackles, no increased WOB ASSESSMENT/PLAN: 1. URI, acute - ICD9: 465.9, ICD10: J06.9 (primary diagnosis) - suspect viral URI - Discussed supportive care treatment. 2. History of smoking - ICD9: V15.82, ICD10: Z87.891 - PREDNISONE 10 MG TABLET taper No prior used of steroid for cough/wheezing. Potential steroid side effects discussed including increased energy, sleep disturbance, mood change. Michele Duran [facility]04-26-2023 History of Present illness Narrative* Michele Duran MD - 09/18/2022 8:58 AM EDT Patient presents with: Sinus Problem: Congestion, cough x 1 month HPI: Feeling lingering cough and congestion for 1 month. Was feeling better but worsened again this morning. Her son is sick since last night also. Positive symptoms: Cough, Sore throat, improved Sinus pressure, Nasal Congestion, Rhinorrhea, Headache, improved Chest tightness, Negative symptoms: Fever, Vomiting, Diarrhea, OTC: Mucinex She smokes; coughs tend to linger for her. No diagnosed history of asthma but thinks she had some issues with lingering coughs as a child. PAST MEDICAL HISTORY Diagnosis Date Anxiety Hepatitis C MEDICATIONS: Current Outpatient Medications Medication Sig medroxyPROGESTERone (DEPO-PROVERA) 150 mg/mL syrg Inject 1 mL intramuscularly every 12 weeks. fluticasone (FLONASE) 50 mcg/actuation nasal spray Use 2 Sprays in each nostril once daily. Rinse mouth after use. (Patient not taking: Reported on 09/18/2022) No current facility-administered medications for this visit. ALLERGIES: ALLERGIES No Known Allergies VITALS: BP 116/74 Pulse 80 Temp 36.7 C (98.1 F) Resp 21 Wt 61.8 kg (136 lb 3.2 oz) LMP 08/28/2012 SpO2 98% BMI 23.38 kg/m PHYSICAL EXAM: GEN: mildly ill appearing, alert, pleasant HEENT: PERRL, EOMI, conjunctiva clear Ears: canals clear. TMs without erythema, bulge, or effusion Sinuses: non-tender frontal sinus, non-tender maxillary sinuses Throat: moist mucous membranes, mild erythema, no exudate Neck: supple, no thyromegaly, no lymphadenopathy HEART: regular rate and rhythm, no murmurs LUNGS: clear to auscultation, no wheezes or crackles, no increased WOB ASSESSMENT/PLAN: 1. URI, acute - ICD9: 465.9, ICD10: J06.9 (primary diagnosis) - suspect viral URI - Discussed supportive care treatment. 2. History of smoking - ICD9: V15.82, ICD10: Z87.891 - PREDNISONE 10 MG TABLET taper No prior used of steroid for cough/wheezing. Potential steroid side effects discussed including increased energy, sleep disturbance, mood change. Michele Duran MD documented in [facility] NoteHNO ID: [id number] Author: Santana Osuna APRN.BOOKMAKER'S CLERK Service: ? Author Type: Nurse Practitioner Type: Progress Notes Filed: 01/24/2022 3:08 PM Note Text: Subjective HPI HPI Hilda Horne is a 26 year old female who presents today for CC of cough, sinus pain/congestion, right ear pain. This started over 1 week ago/worsening. Has tried otc medication for relief. Symptoms are worsened by nothing. Risk factors smoker. Sick exposures at home. No covid test performed. Denies possibility of being . .Patient presents with: Ear Pain: Right ear pain, cough, congestion and sinus x 1 week PAST MEDICAL HISTORY Diagnosis Date NEGATIVE MEDICAL HISTORY PAST SURGICAL HISTORY Procedure Laterality Date NONE ALLERGIES Patient has no known allergies. MEDICATIONS amoxicillin-clavulanic acid (AUGMENTIN) 875-125 mg per tablet Take 1 tablet by mouth twice daily for 7 days. fluticasone (FLONASE) 50 mcg/actuation nasal spray Use 2 Sprays in each nostril once daily. Rinse mouth after use. medroxyPROGESTERone (DEPO-PROVERA) 150 mg/mL syrg Inject 1 mL intramuscularly every 12 weeks. traZODone (DESYREL) 50 mg tablet Take 1 tablet by mouth daily at bedtime. buPROPion XL (WELLBUTRIN XL) 150 mg 24 hr tablet Take 1 tablet by mouth once daily. phenazopyridine (PYRIDIUM) 100 mg tablet Take 1 tablet by mouth three times daily as needed for Pain. FAMILY HISTORY Problem Relation Age of Onset Cancer Maternal Grandmother UTERINE CANCER/BONE CANCER Heart Father Thyroid Maternal Aunt Thyroid Maternal Uncle Aneurysm Maternal Grandmother AORTIC ANEURYSM Social History Tobacco Use Smoking status: Every Day Packs/day: 0.30 Years: 4.00 Pack years: 1.20 Types: Cigarettes Last attempt to quit: 04/25/2011 Years since quittin.7 Smokeless tobacco: Never Tobacco comments: 5 cigarettes per day Substance Use Topics Alcohol use: No Drug use: No ROS Objective Blood pressure 110/78, pulse 80, temperature 37.4 ?C (99.3 ?F), temperature source Tympanic, resp. rate 18, weight 55.1 kg (121 lb 6.4 oz), last menstrual period 08/28/2012, SpO2 98 %. Physical Exam Constitutional: General: She is not in acute distress. Appearance: She is not toxic-appearing or diaphoretic. HENT: Head: Normocephalic and atraumatic. Right Ear: Hearing, ear canal and external ear normal. Tympanic membrane is erythematous and bulging. Tympanic membrane is not perforated. Left Ear: Hearing, tympanic membrane, ear canal and external ear normal. Mouth/Throat: Pharynx: Uvula midline. Eyes: General: Lids are normal. No scleral icterus. Right eye: No discharge. Left eye: No discharge. Conjunctiva/sclera: Conjunctivae normal. Pupils: Pupils are equal, round, and reactive to light. Neck: Trachea: Trachea normal. Cardiovascular: Rate and Rhythm: Normal rate and regular rhythm. Heart sounds: Normal heart sounds. Pulmonary: Effort: Pulmonary effort is normal. Breath sounds: Normal breath sounds. Musculoskeletal: Cervical back: Normal range of motion and neck supple. Lymphadenopathy: Cervical: No cervical adenopathy. Skin: Findings: No rash. Neurological: Mental Status: She is alert and oriented to person, place, and time. ASSESSMENT/PLAN: 1. Sinobronchitis - ICD9: 473.9, 490, ICD10: J32.9, J40 (primary diagnosis) - Will begin treatment with as per antibiotic as written, see orders - Supportive care with plenty of fluids, rest, and analgesia prn. - Follow up in one week if symptoms persist or worsen. - AMOXICILLIN 875 MG-POTASSIUM CLAVULANATE 125 MG TABLET - FLUTICASONE PROPIONATE 50 MCG/ACTUATION NASAL SPRAY,SUSPENSION 2. Acute otitis media, right - ICD9: 382.9, ICD10: H66.91 - Will begin treatment with Augmentin 875 mg PO BID - Supportive care with plenty of fluids, rest, and analgesia prn. - Follow up in one week if symptoms persist or worsen. - AMOXICILLIN 875 MG-POTASSIUM CLAVULANATE 125 MG TABLET - FLUTICASONE PROPIONATE 50 MCG/ACTUATION NASAL SPRAY,SUSPENSION Agrees to plan Santana Osuna APRN.[facility] History of Present illness Narrative* Santana Osuna APRN.BOOKMAKER'S CLERK - 01/24/2022 2:55 PM EDT Subjective HPI HPI Hilda Horne is a 26 year old female who presents today for CC of cough, sinus pain/congestion, right ear pain. This started over 1 week ago/worsening. Has tried otc medication for relief. Symptoms are worsened by nothing. Risk factors smoker. Sick exposures at home. No covid test performed.Denies possibility of being . .Patient presents with: Ear Pain: Right ear pain, cough, congestion and sinus x 1 week PAST MEDICAL HISTORY Diagnosis Date NEGATIVE MEDICAL HISTORY PAST SURGICAL HISTORY Procedure Laterality Date NONE ALLERGIES Patient has no known allergies. MEDICATIONS amoxicillin-clavulanic acid (AUGMENTIN) 875-125 mg per tablet Take 1 tablet by mouth twice daily for 7 days. fluticasone (FLONASE) 50 mcg/actuation nasal spray Use 2 Sprays in each nostril once daily. Rinse mouth after use. medroxyPROGESTERone (DEPO-PROVERA) 150 mg/mL syrg Inject 1 mL intramuscularly every 12 weeks. traZODone (DESYREL) 50 mg tablet Take 1 tablet by mouth daily at bedtime. buPROPion XL (WELLBUTRIN XL) 150 mg 24 hr tablet Take 1 tablet by mouth once daily. phenazopyridine (PYRIDIUM) 100 mg tablet Take 1 tablet by mouth three times daily as needed for Pain. FAMILY HISTORY Problem Relation Age of Onset Cancer Maternal Grandmother UTERINE CANCER/BONE CANCER Heart Father Thyroid Maternal Aunt Thyroid Maternal Uncle Aneurysm Maternal Grandmother AORTIC ANEURYSM Social History Tobacco Use Smoking status: Every Day Packs/day: 0.30 Years: 4.00 Pack years: 1.20 Types: Cigarettes Last attempt to quit: 04/25/2011 Years since quittin.7 Smokeless tobacco: Never Tobacco comments: 5 cigarettes per day Substance Use Topics Alcohol use: No Drug use: No ROS Objective Blood pressure 110/78, pulse 80, temperature 37.4 C (99.3 F), temperature source Tympanic, resp. rate 18, weight 55.1 kg (121 lb 6.4 oz), last menstrual period 08/28/2012, SpO2 98 %. Physical Exam Constitutional: General: She is not in acute distress. Appearance: She is not toxic-appearing or diaphoretic. HENT: Head: Normocephalic and atraumatic. Right Ear: Hearing, ear canal and external ear normal. Tympanic membrane is erythematous and bulging. Tympanic membrane is not perforated. Left Ear: Hearing, tympanic membrane, ear canal and external ear normal. Mouth/Throat: Pharynx: Uvula midline. Eyes: General: Lids are normal. No scleral icterus. Right eye: No discharge. Left eye: No discharge. Conjunctiva/sclera: Conjunctivae normal. Pupils: Pupils are equal, round, and reactive to light. Neck: Trachea: Trachea normal. Cardiovascular: Rate and Rhythm: Normal rate and regular rhythm. Heart sounds: Normal heart sounds. Pulmonary: Effort: Pulmonary effort is normal. Breath sounds: Normal breath sounds. Musculoskeletal: Cervical back: Normal range of motion and neck supple. Lymphadenopathy: Cervical: No cervical adenopathy. Skin: Findings: No rash. Neurological: Mental Status: She is alert and oriented to person, place, and time. ASSESSMENT/PLAN: 1. Sinobronchitis - ICD9: 473.9, 490, ICD10: J32.9, J40 (primary diagnosis) - Will begin treatment with as per antibiotic as written, see orders - Supportive care with plenty of fluids, rest, and analgesia prn. - Follow up in one week if symptoms persist or worsen. - AMOXICILLIN 875 MG-POTASSIUM CLAVULANATE 125 MG TABLET - FLUTICASONE PROPIONATE 50 MCG/ACTUATION NASAL SPRAY,SUSPENSION 2. Acute otitis media, right - ICD9: 382.9, ICD10: H66.91 - Will begin treatment with Augmentin 875 mg PO BID - Supportive care with plenty of fluids, rest, and analgesia prn. - Follow up in one week if symptoms persist or worsen. 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 [facility] NotePap Smear Specimen AdequacyAugust 2021 4:49pmComment.Satisfactory for evaluation. Endocervical and/or squamous metaplasticcells (endocervical component)are present.LABGreat BasinRP INTERFACED A#[id number] Health [facility] Work Phone: Comment on above:Satisfactory for evaluation. Endocervical and/or squamous metaplasticcells (endocervical component)are present.12-19-2011 History of Past illness Narrative* Problem Noted Date Resolved Date depression 12/19/2011 09/01/2015 Supervision of normal first 08/16/2011 11/19/2011 documented as of this encounter (statuses as of 01/24/2022) [facility]07[facility] History of Past illness Narrative* Problem Noted Date Resolved Date depression 12/19/2011 09/01/2015 Supervision of normal first 08/16/2011 11/19/2011 documented as of this encounter (statuses as of 09/18/2022) [facility]* Diagnosis Sinobronchitis- Primary Unspecified sinusitis (chronic) Acute otitis media, right Unspecified otitis media 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 History of hepatitis C acute Smoker acute Routine gynecological examination noneactive [facility] Work Phone: Evaluation noteNo assessment information available [facility] Work Phone: Reason for referral (narrative)No reason for referral information availableUkiah Valley Medical Center Work Phone: Chief Complaint and Reason for Visit 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 Reason for Visit History of drug abus e in remission History of hepatitis C Encounter for routine gynecological examination Abnormal Pap smear of cervix Chief Complaint 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) , depo Reason for Visit ALICIA II (cervical int raepithelial neoplasia II) Contraception management History of drug abuse in remission History of hepatitis C Smoker Routine gynecological examination Chief Complaint Admit Date DEPO August 20, 2024 2:2 6pm DEPO November 19, 2024 2:09 pm Chief Complaint Admit Date DEPO November 19, 2024 2:09 pm DEPO *ok per triage February 22, 2025 1:59pm Reason for Visit Admit Date Contraception management November 19, 2024 2:09pm Contraception management February 22, 2025 1:59pm Advance Directives Advance Directive Response Recorded Date/ Time Advance Directives No April 28, 2016 3:06pm Living Will No September 26, 2019 5: 22pm Power of Fuel Truck Driver No September 26, 2019 5:22pm Advance Directive Response Recorded Date/ Time Advance Directives No September 30, 2022 2:07pm Living Will No September 30, 2022 2: 07pm Power of Fuel Truck Driver No September 30, 2022 2:07pm Advance Directive Response Recorded Date/ Time Advance Directives No September 30, 2022 2:07pm Summary Purpose Family History No Family History Records FoundNo Family History Records Found Additional Source Comments Source Comments (unrecognize d section and content) In the event this informatio n is protected by the Federal Confidentiality of Alcohol and Drug Abuse Patient Records regulations: The Federal rules restrict any use of the information to criminally investigate or prosecute any alcohol or drug abuse patient.[facility] CampusIn the event this information is protected by the Federal Confidentiality of Alcohol and Drug Abuse Patient Records regulations: The Federal rules restrict any use of the information to criminally investigate or prosecute any alcohol or drug abuse patient.[facility] Reason for Visit (unrecogniz ed section and content) Reason Comments Ear Pain Right ear pain, coug h, congestion and sinus x 1 week Reason Comments Sinus Problem Congestion, cough x 1 month Goals (unrecognized section and content) Type Care Experience SVDLabor Preferences -labor support person: ceferino gauthier- april management options preferred: epiduralcut cord/dad catch: nobreastfeeding: noPP control planned: depo proveradiscussed possible routes of delivery and associated risks: []special requests: [] INFORMATION SOURCE (unrecogn ized section and content) DATE CREATED AUTHOR 09/19/2022 [facility] DATE CREATED AUTHOR AUTHOR'S ORGANIZ ATION 02/25/2025 [facility] Care Teams (unrecognized sec tion and content) Team Status: Active Member Role Status Dates No Primary Care Physician Family Provider Active No Primary Care Physician Primary Care Provider Active Team Status: Inactive Member Role Status Dates No Primary Care Physician Primary Care Provider, Refer ring Provider Active Stacy Eugene NP, PAGINATOR-C Attending Provider Active Team Status: Inactive Member Role Status Dates No Primary Care Physician Primary Care Provider Active Stacy Eugene NP, NP-C Attending Provider, Referring Provider Active Team Status: Active Member Role/Relationship Status Dates No Primary Care Physician Family Provider Active Team Status: Inactive Member Role/Relationship Status Dates ASHLEY Villatoro Attending Provider Active Start: August 20, 2024 End: August 20, 2024 Team Status: Inactive Member Role/Relationship Status Dates Dr. Cinthia Bridges MD Attending Provider Active Start: November 19, 2024 End: November 19, 2024 Team Status: Active Member Role/Relationship Status Dates No Primary Care Physician Primary care physician Activ e Team Status: Inactive Member Role/Relationship Status Dates Dr. Cinthia Bridges MD Attending physician Active Start: November 19, 2024 End: November 19, 2024 Team Status: Inactive Member Role/Relationship Status Dates Stacy Eugene NP, GARRET-C Attending physician Active Start: February 22, 2025 End: February 22, 2025 FOR RECORDS PERTAINING TO PATIENTS WHO ARE OR HAVE BEEN ENROLLED IN A CHEMICAL DEPENDENCY/SUBSTANCEABUSE PROGRAM, SOME INFORMATION MAY BE OMITTED. This clinical summary was aggregated from multiple sources. Caution should be exercised in using it in the provision of clinical care. This summary normalizes information from multiple sources, and as a consequence, information in this document may materially change the coding, format and clinical context of patient data. In addition, data may be omitted in some cases. CLINICAL DECISIONS SHOULD BE BASED ON THE PRIMARY CLINICAL RECORDS. [facility] [employer] [facility]. provides no warranty or guarantee of the accuracy or completeness of information in this document.
[2025-06-02 02:07] LABS: HPV APTIMA, High Risk Negative (Negative)
== END | disposition home or self-care (01) ==
LOC: LABSPEC 14:33
PROVIDERS: Visit Provider Nurse Practitioner Family
DX: N89.8 Other specified noninflammatory disorders of vagina (principal)
CPT/HCPCS: 87070; 87205; 87624; 88175; G0145